=== PATIENT | male | born 1940 | race Caucasian/White ===

== ENCOUNTER 2017-07-27 00:28 | Emergency (ER) | payer MEDICARE ==
[~2017-07-27] VITALS: Ht 177.8 cm; Wt 69.8 kg
[2017-07-27 01:37] LABS: BASOPHILS ABSOLUTE AUTO 0.02 K/mm3 (0.00-0.23); BASOPHILS PERCENT AUTO 0 % (0-2); EOSINOPHILS ABSOLUTE AUTO 0.01 K/mm3 (0.00-0.68); EOSINOPHILS PERCENT AUTO 0 % (0-6); IMMATURE GRAN ABSOLUTE AUTO 0.01 K/mm3 (0.00-0.10); IMMATURE GRAN PERCENT AUTO 0 % (0-1); LYMPHOCYTES ABSOLUTE AUTO 1.14 K/mm3 (0.84-5.20); LYMPHOCYTES PERCENT AUTO 18 % (21-46); MONOCYTES PERCENT AUTO 17 % (4-13); Mean Corpuscular HGB 31.4 pg (26.0-34.0); Mean Corpuscular HGB Conc 33.3 g/dL (31.5-36.5); Mean Corpuscular Volume 94 fL (80-100); Mean Platelet Volume 11.4 fL (9.1-12.4); NEUTROPHILS ABSOLUTE AUTO 4.15 K/mm3 (1.96-9.15); NEUTROPHILS PERCENT AUTO 65 % (41-73); Platelet Count 157 K/mm3 (150-400); RDW Coefficient Variation 13.1 % (11.7-14.2); RDW Standard Deviation 45.7 fL (35.1-46.3); Red Blood Cell Count 4.14 M/mm3 (4.30-5.90); White Blood Cell Count 6.43 K/mm3 (4.00-11.30)
[2017-07-27 01:55] LABS: Alanine Aminotransfer (ALT/SGP 48 U/L (12-78); Albumin, Blood 3.7 g/dL (3.4-5.0); Albumin/Globulin Ratio 0.8 (0.8-1.8); Alk Phos 70 U/L (50-136); Anion Gap 5 mmol/L (6-16); Aspartate Aminotrans (AST/SGOT 56 U/L (12-37); Bilirubin, Total 0.5 mg/dL (0.1-1.0); Blood Urea Nitrogen 17 mg/dL (8-24); Bun/Creatinine Ratio 22.3 (12.0-20.0); CO2, Blood 30 mmol/L (21-32); Calcium, Blood 8.7 mg/dL (8.5-10.1); Chloride, Blood 100 mmol/L (98-108); Creatinine, Blood 0.76 mg/dL (0.60-1.20); Globulin, Blood 4.9 g/dL (2.2-4.0); Glomerular Filtration Rate >60 (60-); Glucose, Blood 103 mg/dL (70-99); Potassium, Blood 4.3 mmol/L (3.5-5.5); Sodium, Blood 135 mmol/L (136-145); Total Protein, Blood 8.6 g/dL (6.4-8.2)
[2017-07-27 01:57] LABS: Troponin I <0.015 ng/mL (0.000-0.040)
[2017-07-27 02:13] LABS: Source, Urine Clean Catch
[2017-07-27 02:15] LABS: Bilirubin, Urine Neg (Neg); Blood, Urine Neg (Neg); Glucose Qualitative, Urine Neg (Neg); Ketones, Urine Neg (Neg); Leukocyte Esterase, Urine Neg (Neg); Nitrite, Urine Neg (Neg); Protein, Urine Neg (Neg); Specific Gravity, Urine 1.005 (1.003-1.022); Urobilinogen, Urine NORM (Normal)
[2017-07-27 02:17] LABS: Appearance, Urine Clear (Clear); Color, Urine Yellow (P-Yellow)
[2017-07-27] MEDS ORDERED: Zithromax250 MG PO (03:06)
== END 2017-07-27 03:39 | disposition home or self-care (01) ==
LOC: ER 00:28
PROVIDERS: Emergency Medicine
DX: J18.9 Pneumonia, unspecified organism (principal); Z87.891 Personal history of nicotine dependence
CPT/HCPCS: 36415; 71046; 80053; 81003; 84484; 85025; 93005; 93010; 99283; J7030

== ENCOUNTER → 2018-05-19 | Outpatient (CLI) | payer MEDICARE ==
[~2018-05-19] MED LIST: Zithromax250 MG PO
[2018-05-19 11:13] LABS: BASOPHILS ABSOLUTE AUTO 0.02 K/mm3 (0.00-0.23); BASOPHILS PERCENT AUTO 0 % (0-2); EOSINOPHILS ABSOLUTE AUTO 0.06 K/mm3 (0.00-0.68); EOSINOPHILS PERCENT AUTO 1 % (0-6); Hematocrit 37.8 % (37.0-53.0); Hemoglobin 13.1 g/dL (13.5-17.5); IMMATURE GRAN ABSOLUTE AUTO 0.01 K/mm3 (0.00-0.10); IMMATURE GRAN PERCENT AUTO 0 % (0-1); LYMPHOCYTES PERCENT AUTO 18 % (21-46); MONOCYTES ABSOLUTE AUTO 1.14 K/mm3 (0.16-1.47); MONOCYTES PERCENT AUTO 20 % (4-13); Mean Corpuscular HGB 32.1 pg (26.0-34.0); Mean Corpuscular HGB Conc 34.7 g/dL (31.5-36.5); Mean Corpuscular Volume 93 fL (80-100); Mean Platelet Volume 10.3 fL (9.1-12.4); NEUTROPHILS ABSOLUTE AUTO 3.47 K/mm3 (1.96-9.15); NEUTROPHILS PERCENT AUTO 61 % (41-73); Platelet Count 133 K/mm3 (150-400); RDW Coefficient Variation 12.8 % (11.7-14.2); RDW Standard Deviation 43.8 fL (35.1-46.3); Red Blood Cell Count 4.08 M/mm3 (4.30-5.90)
[2018-05-19 11:35] LABS: Alanine Aminotransfer (ALT/SGP 17 U/L (12-78); Albumin, Blood 3.6 g/dL (3.4-5.0); Albumin/Globulin Ratio 0.8 (0.8-1.8); Alk Phos 83 U/L (40-126); Anion Gap 11 mmol/L (6-16); Aspartate Aminotrans (AST/SGOT 23 U/L (12-37); Bilirubin, Total 0.5 mg/dL (0.1-1.0); Blood Urea Nitrogen 16 mg/dL (8-24); CO2, Blood 28 mmol/L (21-32); Chloride, Blood 96 mmol/L (98-108); Globulin, Blood 4.6 g/dL (2.2-4.0); Glomerular Filtration Rate >60 (60-); Glucose, Blood 102 mg/dL (70-99); Potassium, Blood 3.7 mmol/L (3.5-5.5); Sodium, Blood 135 mmol/L (136-145); Thyroid Stimulating Hormone 4.462 uIU/mL (0.360-4.800); Total Protein, Blood 8.2 g/dL (6.4-8.2)
[2018-05-19 11:36] LABS: Troponin I <0.017 ng/mL (0.000-0.040)
== END | disposition home or self-care (01) ==
LOC: LAB EV 11:09 → LAB SHORT 11:09
PROVIDERS: Physician Assistant
DX: R53.83 Other fatigue (principal); R51 Headache
CPT/HCPCS: 80053; 84443; 84484; 85025

== ENCOUNTER 2018-05-22 17:50 | Emergency (ER) | payer MEDICARE ==
[~2018-05-22] VITALS: Ht 175.3 cm; Wt 68.0 kg
[2018-05-22 19:04] LABS: BASOPHILS ABSOLUTE AUTO 0.01 K/mm3 (0.00-0.23); BASOPHILS PERCENT AUTO 0 % (0-2); EOSINOPHILS ABSOLUTE AUTO 0.05 K/mm3 (0.00-0.68); EOSINOPHILS PERCENT AUTO 1 % (0-6); Hematocrit 37.2 % (37.0-53.0); Hemoglobin 12.2 g/dL (13.5-17.5); IMMATURE GRAN ABSOLUTE AUTO 0.01 K/mm3 (0.00-0.10); IMMATURE GRAN PERCENT AUTO 0 % (0-1); LYMPHOCYTES ABSOLUTE AUTO 1.44 K/mm3 (0.84-5.20); LYMPHOCYTES PERCENT AUTO 36 % (21-46); MONOCYTES ABSOLUTE AUTO 0.49 K/mm3 (0.16-1.47); MONOCYTES PERCENT AUTO 12 % (4-13); Mean Corpuscular HGB 31.4 pg (26.0-34.0); Mean Corpuscular HGB Conc 32.8 g/dL (31.5-36.5); Mean Platelet Volume 10.1 fL (9.1-12.4); NEUTROPHILS ABSOLUTE AUTO 2.02 K/mm3 (1.96-9.15); NEUTROPHILS PERCENT AUTO 50 % (41-73); Platelet Count 144 K/mm3 (150-400); RDW Coefficient Variation 12.7 % (11.7-14.2); Red Blood Cell Count 3.88 M/mm3 (4.30-5.90); White Blood Cell Count 4.02 K/mm3 (4.00-11.30)
[2018-05-22 19:22] LABS: Mean Corpuscular Volume 96 fL (80-100)
[2018-05-22 19:25] LABS: Alanine Aminotransfer (ALT/SGP 22 U/L (12-78); Albumin, Blood 3.4 g/dL (3.4-5.0); Albumin/Globulin Ratio 0.8 (0.8-1.8); Alk Phos 74 U/L (50-136); Anion Gap 4 mmol/L (6-16); Aspartate Aminotrans (AST/SGOT 31 U/L (12-37); Bilirubin, Total 0.3 mg/dL (0.1-1.0); Blood Urea Nitrogen 13 mg/dL (8-24); Bun/Creatinine Ratio 14.1 (12.0-20.0); CO2, Blood 31 mmol/L (21-32); Calcium, Blood 8.9 mg/dL (8.5-10.1); Chloride, Blood 100 mmol/L (98-108); Creatinine, Blood 0.92 mg/dL (0.60-1.20); Globulin, Blood 4.4 g/dL (2.2-4.0); Glomerular Filtration Rate >60 (60-); Glucose, Blood 119 mg/dL (70-99); Potassium, Blood 3.9 mmol/L (3.5-5.5); Sodium, Blood 135 mmol/L (136-145); Total Protein, Blood 7.8 g/dL (6.4-8.2); Troponin I <0.015 ng/mL (0.000-0.040)
== END 2018-05-22 21:12 | disposition home or self-care (01) ==
LOC: ER 17:50
PROVIDERS: Emergency Medicine
DX: G47.33 Obstructive sleep apnea (adult) (pediatric) (principal); Z91.19 Patient's noncompliance with other medical treatment and regimen; J18.9 Pneumonia, unspecified organism; Z87.891 Personal history of nicotine dependence
CPT/HCPCS: 36415; 80053; 84484; 85025; 93005; 93010; 99285-25

== ENCOUNTER 2018-09-08 05:33 | Day surgery (SDC) | payer MEDICARE ==
[~2018-09-08] VITALS: Ht 180.3 cm; Wt 71.0 kg
[~2018-09-08 05:33] MED LIST changes: +Advil200 M1 PO; +HEMP EXTRACT; +THERA1 EACH PO
--- NOTE | 2018-09-08 07:20 | NUR ---
UP TO BATHROOM TO VOID. PT RING PLACED IN BELONGINGS BAG IN BLUE POUCH, LABELED WITH PT STICKER.
--- NOTE | 2018-09-08 11:09 | NUR ---
ASSUMED CARE. TOLERATING PO INTAKE. PO PAIN MED GIVEN FOR PAIN.
--- NOTE | 2018-09-08 11:50 | NUR ---
PT AMBULATED TO BATHROOM WITH ASSIST. NOW SITTING IN CHAIR AWAITING RIDE HOME (FRIEND) TO RETURN.
--- NOTE | 2018-09-08 12:22 | NUR ---
1220- SBA WHILE PT DRESSING, FRIEND HERE, Discharge instructions reviewed with patient. Patient verbalizes understanding. Copy given to patient to take home. Discharged via wheelchair to private car for ride home.
== END 2018-09-08 12:20 | disposition home or self-care (01) ==
LOC: ORSCMMR 05:33 → ORD 07:30 → ORSCMMR 07:30
PROVIDERS: Surgery
PROC: 8E0W4CZ Robotic Assisted Procedure of Trunk Region, Percutaneous Endoscopic Approach (ICD-10-PCS; principal; 2018-09-08 07:30)
PROC: 0YUA4JZ Supplement Bilateral Inguinal Region with Synthetic Substitute, Percutaneous Endoscopic Approach (ICD-10-PCS; principal; 2018-09-08 07:30)
DX: K40.20 Bilateral inguinal hernia, without obstruction or gangrene, not specified as recurrent (principal); G47.33 Obstructive sleep apnea (adult) (pediatric); Z87.891 Personal history of nicotine dependence; B19.20 Unspecified viral hepatitis C without hepatic coma
CPT/HCPCS: 49650; S2900; A9270-GY; C1781; J0690; J1100; J1885; J2250; J2405; J2704; J3010; J7120

== ENCOUNTER → 2021-08-29 | Outpatient (CLI) | payer BC ==
[2021-08-29 13:29] LABS: BASOPHILS ABSOLUTE AUTO 0.02 K/mm3 (0.00-0.23); BASOPHILS PERCENT AUTO 0 % (0-2); EOSINOPHILS ABSOLUTE AUTO 0.06 K/mm3 (0.00-0.68); EOSINOPHILS PERCENT AUTO 1 % (0-6); Hematocrit 41.4 % (37.0-53.0); Hemoglobin 13.9 g/dL (13.5-17.5); IMMATURE GRAN ABSOLUTE AUTO 0.01 K/mm3 (0.00-0.10); IMMATURE GRAN PERCENT AUTO 0 % (0-1); LYMPHOCYTES ABSOLUTE AUTO 1.31 K/mm3 (0.84-5.20); LYMPHOCYTES PERCENT AUTO 28 % (21-46); MONOCYTES ABSOLUTE AUTO 0.53 K/mm3 (0.16-1.47); MONOCYTES PERCENT AUTO 12 % (4-13); Mean Corpuscular HGB 31.4 pg (26.0-34.0); Mean Corpuscular HGB Conc 33.6 g/dL (31.5-36.5); Mean Corpuscular Volume 94 fL (80-100); Mean Platelet Volume 12.7 fL (9.1-12.4); NEUTROPHILS ABSOLUTE AUTO 2.68 K/mm3 (1.96-9.15); NEUTROPHILS PERCENT AUTO 58 % (41-73); Platelet Count 209 K/mm3 (150-400); RDW Coefficient Variation 13.2 % (11.7-14.2); RDW Standard Deviation 45.1 fL (35.1-46.3); Red Blood Cell Count 4.43 M/mm3 (4.30-5.90); White Blood Cell Count 4.61 K/mm3 (4.00-11.30)
[2021-08-29 13:39] LABS: Alanine Aminotransfer (ALT/SGP 23 U/L (12-78); Albumin, Blood 4.4 g/dL (3.4-5.0); Alk Phos 106 U/L (40-126); Anion Gap 9 mmol/L (6-16); Aspartate Aminotrans (AST/SGOT 20 U/L (12-37); Bilirubin, Total 0.5 mg/dL (0.1-1.0); Blood Urea Nitrogen 15 mg/dL (8-24); Bun/Creatinine Ratio 15.3 (12.0-20.0); CO2, Blood 31 mmol/L (21-32); Calcium, Blood 9.7 mg/dL (8.5-10.1); Chloride, Blood 102 mmol/L (98-108); Creatinine, Blood 0.98 mg/dL (0.60-1.20); Globulin, Blood 4.4 g/dL (2.2-4.0); Glomerular Filtration Rate >60 (60-); Glucose, Blood 96 mg/dL (70-99); Potassium, Blood 4.1 mmol/L (3.5-5.5); Sodium, Blood 142 mmol/L (136-145); Total Protein, Blood 8.8 g/dL (6.4-8.2)
== END | disposition home or self-care (01) ==
LOC: LAB SHORT 13:24
PROVIDERS: Physician Assistant
DX: R10.9 Unspecified abdominal pain (principal)
CPT/HCPCS: 80053; 83690; 85025

== ENCOUNTER 2021-11-16 14:52 | Inpatient (IN) | payer MEDICARE ==
[~2021-11-16] VITALS: Ht 182.9 cm; Wt 75.0 kg
[~2021-11-16 14:52] MED LIST changes: -Advil200 M1 PO; +DAILY-VITE1 EAC1 PO; +IBUP200 PO; -THERA1 EACH PO
[2021-11-16 15:52] LABS: BASOPHILS ABSOLUTE AUTO 0.02 K/mm3 (0.00-0.23); BASOPHILS PERCENT AUTO 0 % (0-2); EOSINOPHILS PERCENT AUTO 0 % (0-6); Hematocrit 40.6 % (37.0-53.0); Hemoglobin 13.5 g/dL (13.5-17.5); IMMATURE GRAN ABSOLUTE AUTO 0.06 K/mm3 (0.00-0.10); IMMATURE GRAN PERCENT AUTO 0 % (0-1); LYMPHOCYTES ABSOLUTE AUTO 1.05 K/mm3 (0.84-5.20); LYMPHOCYTES PERCENT AUTO 8 % (21-46); MONOCYTES ABSOLUTE AUTO 1.33 K/mm3 (0.16-1.47); MONOCYTES PERCENT AUTO 10 % (4-13); Mean Corpuscular HGB 30.5 pg (26.0-34.0); Mean Corpuscular HGB Conc 33.3 g/dL (31.5-36.5); Mean Corpuscular Volume 92 fL (80-100); NEUTROPHILS ABSOLUTE AUTO 11.09 K/mm3 (1.96-9.15); NEUTROPHILS PERCENT AUTO 82 % (41-73); Platelet Count 178 K/mm3 (150-400); RDW Coefficient Variation 12.9 % (11.7-14.2); RDW Standard Deviation 43.6 fL (35.1-46.3); Red Blood Cell Count 4.43 M/mm3 (4.30-5.90); White Blood Cell Count 13.55 K/mm3 (4.00-11.30)
[2021-11-16 16:20] LABS: Albumin, Blood 3.4 g/dL (3.4-5.0); Albumin/Globulin Ratio 0.6 (0.8-1.8); Bilirubin, Total 0.7 mg/dL (0.1-1.0); Bun/Creatinine Ratio 19.8 (12.0-20.0); Calcium, Blood 9.3 mg/dL (8.5-10.1); Creatinine, Blood 0.96 mg/dL (0.60-1.20); Globulin, Blood 5.3 g/dL (2.2-4.0); Potassium, Blood 3.6 mmol/L (3.5-5.5); Total Protein, Blood 8.7 g/dL (6.4-8.2)
[2021-11-16 17:56] LABS: Creatine Kinase MB 3.9 ng/mL (0.0-3.6); Creatine Kinase MB Index 0.5 (0.0-4.0)
[2021-11-16 18:32] LABS: Source, Urine Clean Catch
[2021-11-16 18:37] LABS: Influenza A, PCR NEGATIVE (NEGATIVE); Influenza B, PCR NEGATIVE (NEGATIVE); Resp Syncytial Virus, PCR NEGATIVE (NEGATIVE); SARS-Cov-2 (COVID-19) PCR, MMC NEGATIVE (NEGATIVE)
[2021-11-16 18:45] LABS: Appearance, Urine Clear (Clear); Bilirubin, Urine Neg (Neg); Blood, Urine 4+ (Neg); Color, Urine Yellow (P-Yellow); Glucose Qualitative, Urine Neg (Neg); Ketones, Urine Neg (Neg); Leukocyte Esterase, Urine Neg (Neg); Nitrite, Urine Neg (Neg); Protein, Urine 2+ (Neg); Specific Gravity, Urine 1.015 (1.003-1.022); Urobilinogen, Urine NORM (Normal)
[2021-11-16 18:55] LABS: Bacteria Many /hpf; Red Blood Cells, Urine 0-2 /hpf (0-2); Squamous Epithelial Cells Rare /hpf (Few); White Blood Cells, Urine 0-2 /hpf (0-5)
[2021-11-17 04:47] LABS: BASOPHILS ABSOLUTE AUTO 0.03 K/mm3 (0.00-0.23); BASOPHILS PERCENT AUTO 0 % (0-2); EOSINOPHILS PERCENT AUTO 0 % (0-6); Hemoglobin 12.3 g/dL (13.5-17.5); IMMATURE GRAN ABSOLUTE AUTO 0.05 K/mm3 (0.00-0.10); IMMATURE GRAN PERCENT AUTO 0 % (0-1); LYMPHOCYTES ABSOLUTE AUTO 1.13 K/mm3 (0.84-5.20); LYMPHOCYTES PERCENT AUTO 9 % (21-46); MONOCYTES ABSOLUTE AUTO 1.17 K/mm3 (0.16-1.47); MONOCYTES PERCENT AUTO 10 % (4-13); Mean Corpuscular HGB 30.6 pg (26.0-34.0); Mean Corpuscular HGB Conc 33.2 g/dL (31.5-36.5); Mean Corpuscular Volume 92 fL (80-100); Mean Platelet Volume 10.8 fL (9.1-12.4); NEUTROPHILS ABSOLUTE AUTO 9.96 K/mm3 (1.96-9.15); NEUTROPHILS PERCENT AUTO 81 % (41-73); Platelet Count 164 K/mm3 (150-400); RDW Coefficient Variation 12.9 % (11.7-14.2); RDW Standard Deviation 44.1 fL (35.1-46.3); Red Blood Cell Count 4.02 M/mm3 (4.30-5.90); White Blood Cell Count 12.34 K/mm3 (4.00-11.30)
[2021-11-17 05:05] LABS: Albumin, Blood 2.7 g/dL (3.4-5.0); Albumin/Globulin Ratio 0.6 (0.8-1.8); Bilirubin, Total 0.7 mg/dL (0.1-1.0); Bun/Creatinine Ratio 18.5 (12.0-20.0); Calcium, Blood 8.4 mg/dL (8.5-10.1); Creatinine, Blood 0.86 mg/dL (0.60-1.20); Globulin, Blood 4.3 g/dL (2.2-4.0); Potassium, Blood 3.5 mmol/L (3.5-5.5)
[2021-11-17] MEDS ORDERED: FURO20 PO (06:37)
[2021-11-17] MEDS ORDERED: POTA10T PO (06:38)
--- NOTE | 2021-11-17 07:32 | NUR ---
NEW ADMISSION FROM ER. PER ER REPORT PT A/0X4 AND CONTINENT. PT ABLE TO ANSWER A/0 QUESTIONS CORRECTLY HOWEVER NOTED WITH CONFUSION. PT ALSO INCONTINENT. PT WAS USING URINAL WHEN LATER PT FOUND TO HAVE THE URINAL TO HIS MOUTH. UNSURE IF PT DRANK URINE THERE WAS A VERY SMALL AMOUNT HOWEVER HIS ATTENDS WERE SOILED. [facility] CARE PROVIDED AND WHEN PT ASKED IF HE WAS AWARE OF HIM HOLDING HIS URINAL TO HIS MOUTH HE DID NOT KNOW. AFTER THIS EPISODE PT DID NOT CALL FOR URINAL RATHER WAS INCONTINENT. PER IF PT PASSES NURSE BEDSIDE SWALLOW EVAL OKAY FOR HIM TO TAKE P.O. MEDS. PT WITH NO NOTED COUGH DURING BEDSIDE EVAL. PT TOOK MEDS W/O PROBLEM. PT TEMEPERATURE THIS MORNING 102.1 ICE THERAPY GIVEN AND LATER TYLENOL WITH GOOD RESULT. DUE TO PT NOT BEING A RELIABLE HISTORIAN LEFT VOICEMAIL TO [facility] () TO CALL BACK SO THAT WE COULD DO MED REC AND GO OVER OTHER HISTORY. AWAITING CALL. ENDORSED TO ONCOMING RN. PT REPORTS HE HAS SLEEP APNEA AND USES CPAP.
--- NOTE | 2021-11-17 10:57 | NUR ---
Upon receiving a spiritual care referral, I visit pt. Pt is sitting on a chair and alert. 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 Pt proceeds to tells me about his life, his ministry, his family and the 80 acres that they live [place]. Pt is pleasant and talkative. Pt doesn't list any concerns but is easily encouraged by convversation centered around God and anival. I provide therapeutic listening and prayer. Pt responds well and shows signs of being uplifted in his anival. I will continue to remain available to patient and family.
--- NOTE | 2021-11-17 12:25 | NUR ---
Shift Summary A/Ox3, can be impulsive. Ambulate with staff to bathroom and up to chair for meals. Regular diet per Speech Therapy. 1p gait belt and FWW. Denies pain. Voiding well, continent. Enjoyed visit from chaplain Joiner. Meds whole with applesauce.
--- NOTE | 2021-11-17 17:15 | NUR ---
AFTERNOON SHIFT SUMMARY- PT COOPERATIVE WITH CARE. PT IMPLUSIVE GETTING UP TO BATHROOM WITHOUT HELP, BED ALARM INGAGED. PT CALLED AND CONFIRMED MED REC NEEDS, NOTED IN CHART. PT RESTING WITH CALL LIGHT, BED RAILS, AND ALARM IN PLACE.
--- NOTE | 2021-11-18 06:29 | NUR ---
PT WITH NOTED SUNDOWNERS HE BECOMES CONFUSED AND DOES NOT SEEM TO UNDERSTAND HOW TO CALL FOR ASSISTANCE. VERY POOR SAFETY INSIGHT. PT PLACED ON CPAP HOWEVER LATER REMOVED D/T COMPLAIN FROM MASK BEING TOO THIGHT AND HURTING HIS NOSE. PT HEAVILY INCONTINENT. AT START OF SHIFT PT A VERY HEAVY TWO ASSIST TRANSFER TO BED THEN LATER DURING THE NIGHT HE WAS UP AND WALKING WITH 1 ASSIST W/RW TO BATHROOM. PT NOTED ALSO MAKING INCROMPHENSIBLE SOUNDS WHEN TURNED IN BED TO CHANGE ATTENDS OR AT TIMES DURING CARE. PT STATES THAT AT THIS TIMES HE IS SPEAKING IN TONGUES. SPUTUM SAMPLE NOT COLLECTED PT HAS A DRY COUGH. THIS MORNING PT REFUSED MORNING LABS HE WAS ANGRY THAT HE WAS AWAKENED OVERNIGHT. LAB ASKED TO RETURN LATER. PT ONLY AWAKED ONCE TO PLACE CPAP BY RT OTHER TIMES PT AWAKE ON HIS OWN.
[2021-11-18 08:09] LABS: BASOPHILS ABSOLUTE AUTO 0.02 K/mm3 (0.00-0.23); BASOPHILS PERCENT AUTO 0 % (0-2); EOSINOPHILS ABSOLUTE AUTO 0.07 K/mm3 (0.00-0.68); EOSINOPHILS PERCENT AUTO 1 % (0-6); Hematocrit 37.7 % (37.0-53.0); Hemoglobin 12.6 g/dL (13.5-17.5); IMMATURE GRAN ABSOLUTE AUTO 0.04 K/mm3 (0.00-0.10); IMMATURE GRAN PERCENT AUTO 0 % (0-1); LYMPHOCYTES ABSOLUTE AUTO 0.83 K/mm3 (0.84-5.20); LYMPHOCYTES PERCENT AUTO 9 % (21-46); MONOCYTES ABSOLUTE AUTO 1.03 K/mm3 (0.16-1.47); MONOCYTES PERCENT AUTO 11 % (4-13); Mean Corpuscular HGB 30.9 pg (26.0-34.0); Mean Corpuscular HGB Conc 33.4 g/dL (31.5-36.5); Mean Corpuscular Volume 92 fL (80-100); NEUTROPHILS ABSOLUTE AUTO 7.59 K/mm3 (1.96-9.15); NEUTROPHILS PERCENT AUTO 79 % (41-73); Platelet Count 176 K/mm3 (150-400); RDW Coefficient Variation 12.8 % (11.7-14.2); RDW Standard Deviation 43.7 fL (35.1-46.3); Red Blood Cell Count 4.08 M/mm3 (4.30-5.90); White Blood Cell Count 9.58 K/mm3 (4.00-11.30)
[2021-11-18] MEDS ORDERED: AMOCLA875 PO (14:52)
[2021-11-18] MEDS ORDERED: AZIT500 PO (14:52)
[2021-11-18] MEDS ORDERED: VISBIOME 112.51 EACH PO (14:52)
[2021-11-18] MEDS ORDERED: ROBITUSSIN DM PO (15:02)
--- NOTE | 2021-11-18 16:21 | NUR ---
PT HAS FOGETFUL MOMENTS, CAN MAKE NEEDS KNOWN. PT IS COOPERATIVING WITH SOME MEDICATIONS AND CARE. SBA TO 1-PERSON WITH FWW; UNSTEADY AT TIMES. PT IS CONTINENT, BUT IMPULSIVE, DOESN'T USE THE CALL LIGHT. NO SIGNS OF PAIN, ANXIETY, OR AGGRESSION. NO ACUTE CHANGES. CURRENTLY RA. BED ALARM IN USE, CALL LIGHT WITHIN REACH, BED IN THE LOWEST POSITION.
--- NOTE | 2021-11-19 06:07 | NUR ---
PER REPORT PT NOTED SUNDOWNING EARLY IN THE DAY INSISTING ON GOING HOME, REMOVING HIS CLOTHES AND BECOMING AGGRESIVE. AT START OF SHIFT PT WITH VISITORS CALMLY SITTING IN CHAIR HOWEVER SOON AFTER THEY LEFT PT INSISTING ON GOING HOME CONTINUED TO REFUSE TO WEAR CLOTHES, VERY UNSTEADY ON FEET AND IMPULSIVE CONSTANTLY GETTING UP. PT A/0X3-4 HOWEVER CONFUSED NOT UNDERSTANDING WHY HE IS HERE. PT NOTED TO BECOME MORE AGGRESIVE WHEN TOUCHED HOWEVER D/T HIM BEING VERY UNSTEADY UNABLE TO KEEP HANDS OFF PT. RUSTY EDWARDS NOTIFIED WITH ORDER FOR MARBIN AND SEROQUEL 25 MG Q4HP. DID RECEIVE ONE TIME DOSE OF TRAZADONE 50 MG PRIOR TO PT BECOMING INCREASINGLY AGITATED WITH NO EFFECT. SEROQUEL GIVEN WITH MINIMAL EFFECT. PT INSISTING THAT WE UNTIED HIM AND LET HIM GO, AGGRESIVELY SHAKING BEDSIDE RAILS AND STATING THAT HE DOES NOT WANT TO BE HERE BECAUSE WE WANT TO "KILL" HIM. PT WANTED TO USE BATHROOM AND OFFERED BED NI HOWEVER UPSET AND THREW IT ACROSS THE ROOM. PT PROCEEDED TO TAKE ATTENDS OFF AND URINATE ALL OVER THE BED FLOOR STATING HE WAS DOING THAT BECAUSE WE HAD HIM TIED TO THE BED. ZYPREXA 5M IM X1 GIVEN AND THIS SEEMED TO CALM PT DOWN ENOUGH THAT HE ALLOWED US TO CHANGE HIS BED AND CLEAN HIM UP. VS TAKEN AND HR NOTED 150 ON ASSESSMENT RADIAL PULSE FAST. PT WITH NO COMPLAINS OF CHEST PAIN LAYING IN BED. NOTIFIED WITH ORDER OF LOPRESSOR 5M IV X1 AND TELEMETRY ORDER. PT PLACED ON TELE HOWEVER AFTER URINATING PT HR NOTED DECREASE TO BE 100-110. LOPRESSOR NOT GIVEN. PT WITH NO FURTHER EPISODES OF HR SUSTAING IN 150S. SPOKE WITH PT LAINEY AND SHE REPORTS THAT PT HAS PROGRESSIVELY DECLINED, STATES THAT HE CAN BE AGGRESIVE AT TIMES AND WHEN HE IS SET IN DOING SOMETHING IT IS HARD TO CHANGE HIS MIND. SHE REPORTS THAT PRIOR TO HIM COMING HE HAD 5 FALLS AND REPORTS THAT SOMETIMES SHE WOULD FIND HIM LAYING ON THE GROUND SOILED AND HAVING A HARD TIME TO CHANGE HIM. SHE STATES THAT THE DAY HE CAME TO THE ER HE NEEDE THE ASSISTANCE OF 2 "BUILD MEN" TO CARRY PT INTO THE CAR. STATES IS SHE CANNOT TAKE CARE OF PT DUE TO HIS INCREASED NEEDS AND WEAKEND STATE. REQUESTING ASSISTANCE IN PLACING PT IN FACILITY TO SEE IF HE CAN GET STRONGER AND BETTER. ALSO REQUESTING AN UPDATE FROM MD TODAY. WILL ENDORSE TO ONCOMING RN. QUIÑONEZ
[2021-11-19 08:31] LABS: Bun/Creatinine Ratio 22.9 (12.0-20.0); Calcium, Blood 8.6 mg/dL (8.5-10.1); Creatinine, Blood 0.79 mg/dL (0.60-1.20); Potassium, Blood 3.6 mmol/L (3.5-5.5)
--- NOTE | 2021-11-20 05:36 | NUR ---
PT ABLE TO CORRECTLY ANSWER A/O QUESTIONS HOWEVER CONFUSED. PT WANTING TO GO HOME AND AT OTHER TIMES WANTING TO GET OUT OF ROOM TO HELP HIS WHO HE "HEARD SCREAMING." EXPLAINED TO PT THAT HIS WAS NOT HERE AND IT WAS NOTER PT SCREAMING HOWEVER PT INSISTING THAT HE NEEDED TO HELP HIS . PT MEDICATED WITH ZYPREXA X1 AND AFTERWARDS ABLE TO SLEEP. PT WITH CPAP T/O NIGHT.
--- NOTE | 2021-11-20 18:08 | NUR ---
SHIFT SUMMARY PATIENT DENIES PAIN, NAUSEA, AND SHORTNESS OF BREATH. PATIENT IS A 2P FOR TRANSFERS. PATIENT IS VERY FORGETFUL. PATIENT HAS DIFFICULT TIME FOLLOWING DIRECTIONS DUE TO NOT REMEMBERING THEM. PATIENT REMAINS IN MARBIN VEST DUE TO HIGH FALL RISK AND PATIENT FREQUENTLY TRYING TO GET OUT OF BED. PATIENT REPEATEDLY ASKS WHEN HE CAN GO HOME. PATIENT VISITED TODAY. PATIENT IS EATING AND DRINKING WELL. PATIENT WORKED WITH PT TODAY, RECOMMENDING HOME WITH H.H OR MEMORY CARE. PATIENT WAS PLEASANT AND COOPERATIVE WITH CARE.
--- NOTE | 2021-11-21 06:52 | NUR ---
PT OVERNIGHT OSORIO TO SLEEP BETTER W/O NEEDING PRN ZYPREXA. DOES HAVE EPISODES WHEN HE WAKES UP AND TRIES TO "GO HOME" WANTING TO BE UNTIED HOWEVER WAS ABLE TO BE REDIRECTABLE. CPAP T/O THE NIGHT. CONT/INCONT. PT REMAINED ON MARBIN RESTRAINT.
--- NOTE | 2021-11-21 17:27 | NUR ---
SHIFT SUMMARY PATIENT DENIES PAIN, NAUSEA, AND SHORTNESS OF BREATH. PATIENT IS A 2P FOR TRANSFERS. PATIENT WORKED WITH OT TODAY. PATIENT HAD A VISITOR IN THE AFTERNOON. PATIENT VERY PLEASANT, DISCONTINUED MARBIN VEST DUE TO BED/CHAIR ALARMS AND CAMERA ON. PATIENT DID START TO GET SLIGHTLY AGGITATED IN THE EVENING, BUT REDIRECTABLE. PATIENT IS EATING AND DRINKING WELL. PATIENT IS PLEASANT AND COOPERATIVE WITH CARE.
--- NOTE | 2021-11-21 23:24 | NUR ---
PT HAS BEEN INCREASINGLY AGGRESSIVE THIS EVENING. HE WAS ATTEMPTING TO LEAVE AT SHIFT CHANGE AND BOTH RNS AND CNAS FROM BOTH SHIFTS HAD TO HELP RESTRAIN THE PATIENT. HE WAS PLACED IN A VEST AND BILATERAL SOFT WRIST RESTRAINTS APDOUGIE GONCALVES ORDER. PT REPREATEDLY KEP RIPPING OFF THE BILATERAL WRISTS AND PUNCHING AND KICKING STAFF WHEN THEY WERE PLACED. MD ORDERE TUFF CUFF BE PLACED BILATERALLY ON WRISTS. SECURITY CALLED TO HELP WITH PLACING THEM. PT IS CURRENTLY LAYING IN BED CURSING AND YELLING.
--- NOTE | 2021-11-22 04:57 | NUR ---
SHIFT SUMMARY SEE EARLIER NOT ABOUT BEHAVIORAL ISSUES AND RESTRAINTS. PT HAS BEEN SLEEPING SINCE BEING PLACED IN TOUGH CUFFS AND HAS BEEN MORE PLEASANT WITH STAFF. HE IS INCONT AND REQUIRES CHANGING FREQUENTLY HE IS A HEAVY WETTER. HE DENIES PAIN OR SOB, BUT IS VERY CONFUSED AND HE WANTS TO GO HOME AND THINKS STAFF IS HOLDING HIM AGAINST HIS WILL. PT HAS CALLED HIS SEVERAL TIMES, BUT SHE IS NOT ANSWERING.. BED IS IN LOWEST POSITION AND CALL LIGHT IN REACH
[2021-11-22 07:05] LABS: Bun/Creatinine Ratio 27.7 (12.0-20.0); Calcium, Blood 8.8 mg/dL (8.5-10.1); Creatinine, Blood 0.83 mg/dL (0.60-1.20); Potassium, Blood 3.9 mmol/L (3.5-5.5)
--- NOTE | 2021-11-22 17:32 | NUR ---
SHIFT SUMMARY PATIENT MEDICATED FOR PAIN, DENIES NAUSEA AND SHORTNESS OF BREATH. PATIENT IS A 2P FOR TRANSFERS. OT WORKED WITH PATIENT TODAY. RECOMMEND MEMORY CARE. AND FRIEND VISITED TODAY. PATIENT REMAINS IN RESTRAINTS DUE TO STAFF AND PATIENT SAFETY. PATIENT SLEPT ON AND OFF TODAY. PATIENT STARTED TO GET RESTLESS IN EVENING. PATIENT HAS BEEN PLEASANT AND COOPERATIVE WITH CARE THIS SHIFT.
--- NOTE | 2021-11-23 05:05 | NUR ---
SHIFT SUMMARY PT HAS HAD A MUCH BETTER NIGHT THIS SHIFT. HE HAS BEEN CALM AND COOPERATIVE WITH CARE. HE ALLOWED US TO CHANGE HIM AND TOOK HIS MEDICATIONS DIRECTED. HE HAS SLEPT ALL NIGHT. NO COMPLAINTS OF PAIN. HIS MENTATION IS IMPROVED OVER PREVIOUS SHIFT. HE STILL TALKS OF GOING HOME, BUT ACKOWLEDGES THAT HE KNOWS HIS CAN'T CARE FOR HIM. RESTRAINTS ARE STILL IN PLACE THE PT IS FORGETFUL AND TRIES TO LEAVE AND HAS BEEN AGGRESSIVE IN THE PAST WHEN TRYING TO REDIRECT. BED IN LOWEST POSITION AND CALL LIGHT IN REACH.
--- NOTE | 2021-11-23 08:00 | NUR ---
pt laying in bed eating breakfast, when asked how he is he states I'm happy, I'm happy because Im eating, Im always happy when Im eating, coopertive with care this am, follows commands well, denies pain, lungs are clear t/o, resp even and unlabored, no cough noted, hrr, no edema noted, ppp+2, cap refill <3 sec, vs stable, afebrile, piv is clear and patent, bt x4, abd flat soft nontender, voids some in urinal, also has brief in place, skin is a bit pink on coccyx, otherwise c/w/d, gloria scales, call light in reach. did remove left wrist to feed himself.
--- NOTE | 2021-11-23 18:22 | NUR ---
pt has been calm today, sat up in a chair for half the day, cooperative with care, visitor in room this afternoo, resting in bed at this time, call light in reach.
--- NOTE | 2021-11-24 05:13 | NUR ---
BENEFITS ANALYST SUMMARY ADMITTED FOR [facility]PSIS PNA. PT IS A FULL CODE. HE IS ALERT AND ORIENTED X2-3 WITH INTERMITTENT CONFUSION THROUGHOUT THE SHIFT. HE IS IMPULSIVE AND TRIES TO GET UP WITHOUT USING CALL LIGHT SO HAS REMAINED IN A MARBIN THROUGHOUT THE SHIFT. HE DOES NOT PULL ON THE MARBIN AND HAS BEEN SLEEPING. PT IS A 2P MAX ASSIST UP TO THE COMMODE WHEN NECESSARY BUT IS CONTINENT/INCONTINENT OF URINE. HIS LUNGS ARE DIMINISHED IN THE BASES BUT OTHERWISE CLEAR. HE HAS BEEN WEARING HIS CPAP INTERMITTENTLY TONIGHT. HE HAS COMPLAINTS OF CHRONIC NECK PAIN THAT IS IMPROVED WITH A NECK PILLOW AND UNINTERRUPTED REST.
--- NOTE | 2021-11-24 17:46 | NUR ---
SHIFT SUMMARY: MARBIN WILDER D/C'D AT 1000 THIS MORNING. TARYN HAS BEEN CALM AND COOPERATIVE THIS SHIFT, NO BEHAVIORS REQUIRING PRN MEDICATIONS. REFUSED 1600 DOSE OF SEROQUEL. C/O CHRONIC NECK/BACK PAIN; DECLINED OFFERED TYLENOL, STATING "IT WON'T DO ANYTHING." A&O X 2, KNOWS HIS FAMILY. WORKED WITH PT/OT TODAY, IS AMBULATING BETTER USING 1 PERSON, GAIT BELT, AND FWW. NEEDS CUES TO KEEP FWW CLOSER TO HIM. AND HIS FRIENDS VISITED PART OF THE DAY.
--- NOTE | 2021-11-25 04:54 | NUR ---
PROFESSIONAL SERVICES MANAGER SUMMARY ADMITTED FOR SEPSIS PNA. HE IS A FULL CODE. PLAN FOR PLACEMENT, HOME HEALTH VS MEMORY CARE. PT HAS BEEN MOSTLY PLEASANT THROUGHOUT THE SHIFT, WITH SLIGHT AGITATION THIS MORNING. HE IS ALERT AND ORIENTED X2. CONTINENT BUT INCONTINENT AT NIGHT SOMETIMES. 1PA WITH FWW. HE HAS BEEN WEARING HIS CPAP AT NIGHT WITHOUT ISSUE. DOES NOT USE CALL LIGHT BEFORE GETTING UP.
[2021-11-25 05:31] LABS: BASOPHILS ABSOLUTE AUTO 0.03 K/mm3 (0.00-0.23); BASOPHILS PERCENT AUTO 0 % (0-2); EOSINOPHILS ABSOLUTE AUTO 0.24 K/mm3 (0.00-0.68); EOSINOPHILS PERCENT AUTO 3 % (0-6); Hematocrit 38.9 % (37.0-53.0); Hemoglobin 12.8 g/dL (13.5-17.5); IMMATURE GRAN ABSOLUTE AUTO 0.07 K/mm3 (0.00-0.10); IMMATURE GRAN PERCENT AUTO 1 % (0-1); LYMPHOCYTES ABSOLUTE AUTO 1.65 K/mm3 (0.84-5.20); LYMPHOCYTES PERCENT AUTO 23 % (21-46); MONOCYTES ABSOLUTE AUTO 0.91 K/mm3 (0.16-1.47); MONOCYTES PERCENT AUTO 13 % (4-13); Mean Corpuscular HGB 30.1 pg (26.0-34.0); Mean Corpuscular HGB Conc 32.9 g/dL (31.5-36.5); Mean Corpuscular Volume 92 fL (80-100); Mean Platelet Volume 10.7 fL (9.1-12.4); NEUTROPHILS ABSOLUTE AUTO 4.24 K/mm3 (1.96-9.15); NEUTROPHILS PERCENT AUTO 59 % (41-73); Platelet Count 323 K/mm3 (150-400); RDW Coefficient Variation 12.7 % (11.7-14.2); Red Blood Cell Count 4.25 M/mm3 (4.30-5.90); White Blood Cell Count 7.14 K/mm3 (4.00-11.30)
[2021-11-25 05:55] LABS: Albumin, Blood 2.8 g/dL (3.4-5.0); Albumin/Globulin Ratio 0.5 (0.8-1.8); Bilirubin, Total 0.3 mg/dL (0.1-1.0); Calcium, Blood 9.3 mg/dL (8.5-10.1); Creatinine, Blood 0.89 mg/dL (0.60-1.20); Globulin, Blood 5.4 g/dL (2.2-4.0); Potassium, Blood 4.4 mmol/L (3.5-5.5); Total Protein, Blood 8.2 g/dL (6.4-8.2)
--- NOTE | 2021-11-25 17:14 | NUR ---
SHIFT SUMMARY NO ACUTE EVENTS. PTN PLEASANT AND COOPERATIVE. PTN DID COMPLAIN OF NECK PAIN AND WAS MEDICATED WITH PRN TYLENOL, WHICH DID NOT IMPROVE HIS PAIN MUCH PER HIS REPORT, THOUGH HE DID NOT COMPLAIN AND WORE A NECK DONUT CUSHION FOR COMFORT MOST OF THE DAY. PTN CONTINENT OF BLADDER AND UP TO TOILET X3. AND DAUGHTER HERE FOR VISIT. POSSIBLE MEMORY CARE PLACEMENT.
--- NOTE | 2021-11-26 04:01 | NUR ---
SHIFT SUMMARY PT HAD AN UNEVENTFUL NIGHT. NO RESPIRATORY DISTRESS NOTED. PT WORE CPAP THIS EVENING WHILE SLEEPING AND TOLERATED WELL. CONTINENT. AMBULATED TO THE RESTROOM WITH LITTLE ASSISTANCE. SLIGHTLY UNSTEADY ON HIS FEET. REPORTED SOME GENERALIZED PAIN THAT WAS RELIEVED WITH REPOSITIONING. SLEPT WELL THROUGH MOST OF THE NIGHT. VITAL SIGNS STABLE. NO ACUTE CHANGES THIS SHIFT.
[2021-11-26 10:11] LABS: Hematocrit 40.5 % (37.0-53.0); Hemoglobin 12.9 g/dL (13.5-17.5)
--- NOTE | 2021-11-26 19:28 | NUR ---
SHIFT SUMMARY: NO ACUTE EVENTS. TARYN WAS MUCH MORE ALERT TODAY, AMBULATED IN HALLWAY X 3 AND IS USING BR PRN. HAS CHRONIC NECK PAIN, BUT DECLINED OFFERED TYLENOL. USING SBA AND FWW. GOOD APPETITE. HAD A VISIT FROM HIS DAUGHTER AND 3 SMALL GRANDCHILDREN, WHICH MADE HIM VERY HAPPY. NO RESTRAINTS IN USE THIS SHIFT.
--- NOTE | 2021-11-27 05:56 | NUR ---
SHIFT SUMMARY PT HAD AN UNEVENTFUL NIGHT. SLEPT THOUGH MOST OF THE EVENING. SOME MILD CONFUSION BUT VERY EASILY REDIRECTABLE. DID NOT REQUIRE ANY RESTRAINTS THIS EVENING. NO ACUTE EVENTS. VITAL SIGNS STABLE. AWAITING PLACEMENT.
--- NOTE | 2021-11-27 19:02 | NUR ---
SHIFT SUMMARY PATIENT A&O TO SELF AND FAMILY. PLEASANT AND COOPERATIVE WITH CARE. 1PA TO RESTROOM. FAMILY IN AND OUT T/O SHIFT. AMBULATED HALLS X2 AND TOLERATED WELL. NO SIGNIFICANT EVENTS T/O SHIFT. REPORT GIVEN TO ONCOMNG RN.
--- NOTE | 2021-11-28 04:38 | NUR ---
SHIFT SUMMARY A/O TO SELF AND FAMILY, PLEASANT AND COOPERATIVE WITH CARE. EASILY REDIRECTABLE THIS SHIFT. 1P ASSIST WITH FWW. COMPLIANT WITH CPAP. VSS, NO ACUTE CHANGES AT THIS TIME. BED IN LOWEST POSITION WITH CALL LIGHT IN REACH. WILL CONTINUE TO MONITOR AND REPORT TO ONCOMING RN.
[2021-11-28 12:25] LABS: Influenza A, PCR NEGATIVE (NEGATIVE); Influenza B, PCR NEGATIVE (NEGATIVE); Resp Syncytial Virus, PCR NEGATIVE (NEGATIVE); SARS-Cov-2 (COVID-19) PCR, MMC NEGATIVE (NEGATIVE)
--- NOTE | 2021-11-28 17:21 | NUR ---
SHIFT SUMMARY PATIENT IS ALERT AND ORIENTED TO SELF AND FAMILY. PATIENT HAS BEEN COOPERATIVE WITH CARE THIS SHIFT. PATIENT HAS BEEN A 1 PERSON ASSIST WITH WALKER. PATIENT HAS HAD NO ACUTE EVENTS THIS SHIFT. VITAL SIGNS REVIEWED. BED IS IN LOCKED AND LOWEST POSITION. CALL LIGHT IN PLACE. WILL MONITOR UNTIL SHIFT CHANGE.
--- NOTE | 2021-11-29 04:20 | NUR ---
SHIFT SUMMARY A/O TO SELF, FAMILY, AND SURROUNDINGS. PLEASANT AND COOPERATIVE WITH CARE, IMPULSIVE AT TIMES BUT EASILY REDIRECTABLE. 1P ASSIST WITH FWW. DENIES PAIN OR SOB. VSS, NO ACUTE CHANGES AT THIS TIME. BED IN LOWEST POSITION WITH CALL LIGHT IN REACH. WILL CONTINUE TO MONITOR AND REPORT TO ONCOMING RN.
--- NOTE | 2021-11-29 16:56 | NUR ---
SHIFT SUMMARY PATIENT IS ALERT AND ORIENTED TO SELF AND SITATION. PATIENT HAS HAD NO ACUTE EVENTS THIS SHIFT. PATIENT IS BEING DISCHARGED TO HOME WITH HOME HEALTH. PATIENT'S HAS BEEN CONTACTED A COUPLE TIMES BY UNDERWRITING CONSULTANT. THIS RN HAS CALLED PATIENTS TWICE WELL. VITAL SIGNS REVIEWED. PATIENT IS A 1 PERSON ASSIST TO BATHROOM. PATIENT IS PLEASENT AND COOPERATIVE WITH CARE. PATIENT HAS HAD NO COMPLAINTS OF NAUSEA, SOB, VOMITTING OR PAIN THIS SHIFT. WILL MONITOR UNTIL SHIFT CHANGE.
[2021-11-29] MEDS ORDERED: Seroquel Xr50 MG PO (18:05)
[2021-11-29] MEDS ORDERED: TRAZ100 PO (18:08)
[2021-11-29] MEDS ORDERED: GABA100 PO (18:08)
--- NOTE | 2021-11-29 18:16 | NUR ---
NURSE NOTE. PATIENT HAD DISCHARGE ORDERS. CARE MANAGEMENT HAS CALLED TWICE TO PICK PATIENT UP FOR DISCHARGE. THIS RN HAS CALLED TWICE. HAS NOT ANSWERED ANY PHONE CALLS. PATIENTS DISCHARGE PAPERWORK IS COMPLETE. MEDICATIONS NEED TO BE FAXED TO PATIENTS PHARMACY, UNKOWN AT THIS POINT. WILL TRANSFER INFORMATION TO NEXT SHIFT.
--- NOTE | 2021-11-30 05:49 | NUR ---
SHIFT SUMMARY: PT IS A/OX3. VERY PLEASANT AND COOPERATIVE WITH ALL CARE. THE PT DID USE HIS CALL LIGHT FOR NEEDS. NO CHANGES TO REPORT THIS SHIFT. WE'LL CONTINUE TO MONITOR.
--- NOTE | 2021-11-30 17:02 | NUR ---
Pt. is sittign up in a chair and welcomes my visit. Pt. is pleasant and rapport is quickly established. Pt. is a retired [employer] so we facilitated a life reveiew and discussed matters of anival and belief. Pt. displayed eveidence of being encouraged. Prayed with Pt. Pt. verblaized gratitude for his spiritual care visit, and his hope for discharge soon.
--- NOTE | 2021-11-30 17:19 | NUR ---
SHIFT SUMMARY: PT A/O X 3, STANDBY WITH WALKER. PT HAS BEEN VERY PLEASANT AND COOPERATIVE THROUGHOUT SHIFT. HE HAS BEEN UP IN CHAIR AWAKE AND WATCHING TV OR VISITING WITH FAMILY MOST OF SHIFT. HE HAS HAD NO COMPLAINTS OR CONCERNS EXCEPT ASKING IF WE KNOW WHERE HE WILL BE DISCHARGING TO. PT HAS BEEN ACCEPTING OF EXPLAINATION AND HAS NOT SHOWN SIGNS OF AGITATION THROUGHOUT SHIFT. PT SHAVED HIMSELF TODAY AND HAD VISIT WITH BOND ANALYST. NO CONCERNS OR COMPLAINTS AT THIS TIME.
--- NOTE | 2021-12-01 04:27 | NUR ---
SHIFT SUMMARY: PT IS A/OX3. HE USES THE CALL BUTTON ON OCCASION, BUT A LITTLE IMPULSIVE TO THE BATHROOM AT TIMES; 1 PA W/ FWW. HE IS TAKING PO MEDS WITH H20. HE WORE THE CPAP THROUGHOUT THE NIGHT. HE IS AWAITING PLACEMENT. WE'LL CONTINUE TO MONITOR.
--- NOTE | 2021-12-01 18:34 | NUR ---
SHIFT SUMMARY- PT ALERT AND ORIENTED TO SELF AND FAMILY, ABLE TO FOLLOW DIRECTIONS WELL. PT IS IMPULSIVE, BED AND CHAIR ALARMS BEING USED FOR PT SAFETY. PT HAS HAD NO ACUTE CHANGES T/O THE DAY. PT CURRENTLY SITTING UP IN A CHAIR, NO S&S OF DISTRESS WILL CTM AND PASS ON TO NIGHT RN IN REPORT.
--- NOTE | 2021-12-02 06:00 | NUR ---
SUMMARY NO NEW ISSUES NOTED. PT HAS BEEN PLESANT AND COPPERATIVE. PT HAS VOIDED WELL THROUGHOUT SHIFT. PT HAS BEEN SLEEPING SOUNDLY THROUGHOUT SHIFT. CALL LIGHT IN REACH AND BED ALARM ON.
--- NOTE | 2021-12-02 09:10 | NUR ---
SPOKE WITH ; WILL BE IN TO MINING CONSULTANT PT AROUND 10:30 FOR D/C
--- NOTE | 2021-12-02 11:14 | NUR ---
PARTIAL SHIFT SUMMARY- PT A&O X3. PT VSS. PT APPETITE VERY GOOD. PT AMBULATING WELL IN HALLWAY. WILL CONTINUE TO MONITOR. D/C- PT D/C TO HOME WITH . DISCUSSED PAPERWORK WITH , SENT IN HAND. PT WHEELCHAIR TO AUTOMOBILE FOR HOME. ALL BELONGINGS WITH .
== END 2021-12-02 11:10 | disposition home health service (06) | DRG 871 ==
LOC: ER 14:52 → MEDS 19:20 → ENPENDDIS 11-29 17:56 → MEDS 12-02 11:10
PROVIDERS: Family Medicine; Physician Assistant; Student in an Organized Health Care Education/Training Program; ADMIT Internal Medicine
DX: A41.9 Sepsis, unspecified organism (principal); J18.9 Pneumonia, unspecified organism; M62.82 Rhabdomyolysis; F05 Delirium due to known physiological condition; R44.0 Auditory hallucinations; E87.2 Acidosis; Z20.822 Contact with and (suspected) exposure to COVID-19; R65.20 Severe sepsis without septic shock; M19.90 Unspecified osteoarthritis, unspecified site; G89.29 Other chronic pain; M54.9 Dorsalgia, unspecified; R45.1 Restlessness and agitation; F91.8 Other conduct disorders; M54.2 Cervicalgia; E86.0 Dehydration; Z98.890 Other specified postprocedural states; Z78.1 Physical restraint status; Z87.891 Personal history of nicotine dependence; Z79.899 Other long term (current) drug therapy
CPT/HCPCS: 0241U; 36415; 70450; 71045; 80048; 80053; 81001; 82550; 82553; 83605; 83880; 84484; 85014; 85018; 85025; 87040; 87086; 92526; 92610; 93005; 93010; 93971; 94660; 94760; 94761; 94762; 96365; 96375; 97110; 97116; 97162; 97165; 97530; 97535; 99285-25; A9270; J0456; J0696; J1650; J7030; J7050

== ENCOUNTER 2021-12-07 20:53 | Emergency (ER) | payer MEDICARE ==
[~2021-12-07] VITALS: Ht 177.8 cm; Wt 68.0 kg
[~2021-12-07 20:53] MED LIST changes: +AMOCLA875 PO; +AZIT500 PO; +FURO20 PO; +GABA100 PO; +POTA10T PO; +ROBITUSSIN DM PO; +Seroquel Xr50 MG PO; +TRAZ100 PO; +VISBIOME 112.51 EACH PO
[2021-12-07 22:20] LABS: Influenza A, PCR NEGATIVE (NEGATIVE); Influenza B, PCR NEGATIVE (NEGATIVE); Resp Syncytial Virus, PCR NEGATIVE (NEGATIVE)
[2021-12-07 23:56] LABS: SARS-Cov-2 (COVID-19) PCR, MMC POSITIVE (NEGATIVE)
== END 2021-12-08 12:14 | disposition home or self-care (01) ==
LOC: ER 20:53
PROVIDERS: Emergency Medicine
DX: U07.1 COVID-19 (principal); G31.84 Mild cognitive impairment of uncertain or unknown etiology; F05 Delirium due to known physiological condition; Z79.899 Other long term (current) drug therapy; Z87.891 Personal history of nicotine dependence
CPT/HCPCS: 0241U; 99284; A9270

== ENCOUNTER 2022-08-23 20:53 | Observation (INO) | payer MEDICARE ==
[~2022-08-23] VITALS: Ht 177.8 cm; Wt 69.2 kg
[2022-08-23 21:35] LABS: BASOPHILS ABSOLUTE AUTO 0.03 K/mm3 (0.00-0.23); BASOPHILS PERCENT AUTO 0 % (0-2); EOSINOPHILS ABSOLUTE AUTO 0.07 K/mm3 (0.00-0.68); EOSINOPHILS PERCENT AUTO 1 % (0-6); Hematocrit 41.1 % (37.0-53.0); Hemoglobin 13.8 g/dL (13.5-17.5); IMMATURE GRAN ABSOLUTE AUTO 0.02 K/mm3 (0.00-0.10); IMMATURE GRAN PERCENT AUTO 0 % (0-1); LYMPHOCYTES ABSOLUTE AUTO 1.15 K/mm3 (0.84-5.20); LYMPHOCYTES PERCENT AUTO 14 % (21-46); MONOCYTES PERCENT AUTO 11 % (4-13); Mean Corpuscular HGB 30.7 pg (26.0-34.0); Mean Corpuscular HGB Conc 33.6 g/dL (31.5-36.5); Mean Corpuscular Volume 91 fL (80-100); Mean Platelet Volume 10.7 fL (9.1-12.4); NEUTROPHILS ABSOLUTE AUTO 6.36 K/mm3 (1.96-9.15); NEUTROPHILS PERCENT AUTO 75 % (41-73); Platelet Count 197 K/mm3 (150-400); RDW Coefficient Variation 12.6 % (11.7-14.2); RDW Standard Deviation 41.9 fL (35.1-46.3); White Blood Cell Count 8.53 K/mm3 (4.00-11.30)
[2022-08-23 21:53] LABS: Albumin, Blood 4.3 g/dL (3.4-5.0); Albumin/Globulin Ratio 0.9 (0.8-1.8); Bilirubin, Total 0.4 mg/dL (0.1-1.0); Bun/Creatinine Ratio 19.8 (12.0-20.0); Calcium, Blood 9.7 mg/dL (8.5-10.1); Creatinine, Blood 1.16 mg/dL (0.60-1.20); Potassium, Blood 3.9 mmol/L (3.5-5.5); Total Protein, Blood 9.3 g/dL (6.4-8.2)
[2022-08-23 22:58] LABS: Creatine Kinase MB Index 1.5 (0.0-4.0)
[2022-08-24 02:05] LABS: Source, Urine Clean Catch
[2022-08-24 02:08] LABS: Bilirubin, Urine Neg (Neg); Blood, Urine 2+ (Neg); Glucose Qualitative, Urine Neg (Neg); Ketones, Urine Neg (Neg); Leukocyte Esterase, Urine Neg (Neg); Nitrite, Urine Neg (Neg); Protein, Urine Neg (Neg); Urobilinogen, Urine NORM (Normal)
[2022-08-24] MEDS ORDERED: SPIR25 PO (02:08)
[2022-08-24 02:21] LABS: Appearance, Urine Clear (Clear); Color, Urine Yellow (P-Yellow)
[2022-08-24 02:22] LABS: Bacteria Rare /hpf; Squamous Epithelial Cells Not Seen /hpf (Few); White Blood Cells, Urine 0-2 /hpf (0-5)
[2022-08-24 05:03] LABS: BASOPHILS ABSOLUTE AUTO 0.03 K/mm3 (0.00-0.23); BASOPHILS PERCENT AUTO 0 % (0-2); EOSINOPHILS ABSOLUTE AUTO 0.08 K/mm3 (0.00-0.68); EOSINOPHILS PERCENT AUTO 1 % (0-6); Hematocrit 35.7 % (37.0-53.0); Hemoglobin 11.9 g/dL (13.5-17.5); IMMATURE GRAN ABSOLUTE AUTO 0.02 K/mm3 (0.00-0.10); IMMATURE GRAN PERCENT AUTO 0 % (0-1); LYMPHOCYTES ABSOLUTE AUTO 1.17 K/mm3 (0.84-5.20); LYMPHOCYTES PERCENT AUTO 15 % (21-46); MONOCYTES PERCENT AUTO 11 % (4-13); Mean Corpuscular HGB 30.6 pg (26.0-34.0); Mean Corpuscular HGB Conc 33.3 g/dL (31.5-36.5); Mean Corpuscular Volume 92 fL (80-100); Mean Platelet Volume 10.8 fL (9.1-12.4); NEUTROPHILS ABSOLUTE AUTO 5.69 K/mm3 (1.96-9.15); NEUTROPHILS PERCENT AUTO 72 % (41-73); Platelet Count 173 K/mm3 (150-400); RDW Coefficient Variation 12.6 % (11.7-14.2); RDW Standard Deviation 42.5 fL (35.1-46.3); Red Blood Cell Count 3.89 M/mm3 (4.30-5.90); White Blood Cell Count 7.89 K/mm3 (4.00-11.30)
--- NOTE | 2022-08-24 05:32 | NUR ---
PT ARRIVED TO FLOOR AND WAS TRANSFRED TO BED FROM [facility] WITH 3 PERSON ASSIST WAS SLID OVER. PT UNABLE TO GIVE INFORMATION FOR MEDICATIONS OR HEALTH HX, BUT WAS EMPHATIC, THAT HE DID NOT WANT A FLUE VAC. PT WANTING TO BE LEFT ALONE SO HE COULD SLEEP. CALL FROM TELE PT HAVING ST ELEVATION. CALLED EKG DONE BBB SHOWN. CALL LIGHT IN [facility] BED ALRM ON.
[2022-08-24 06:14] LABS: Albumin, Blood 3.6 g/dL (3.4-5.0); Albumin/Globulin Ratio 0.9 (0.8-1.8); Bilirubin, Total 0.7 mg/dL (0.1-1.0); Bun/Creatinine Ratio 17.4 (12.0-20.0); Calcium, Blood 8.9 mg/dL (8.5-10.1); Creatinine, Blood 1.15 mg/dL (0.60-1.20); Globulin, Blood 4.2 g/dL (2.2-4.0); Magnesium, Blood 2.4 mg/dL (1.6-2.4); Potassium, Blood 4.1 mmol/L (3.5-5.5); Total Protein, Blood 7.8 g/dL (6.4-8.2)
--- NOTE | 2022-08-24 16:22 | NUR ---
ALERT AND ORIENTED X2-3, VERY PLEASANT TO CARE, IMPULSIVE TO TRANSFER, BED/CHAIR ALARM, EASILY REDIRECTED, TO BRING IN HOME CPAP TOMORROW. IVF INFUSING, BSU, WAITING FOR POSSIBLE PLACEMENT, UNABLE TO CARE FOR PATIENT WITH FREQUENT FALLS, WILL RELAY TO PM RN
--- NOTE | 2022-08-25 04:17 | NUR ---
SHIFT MOSTLY UNREMARKABLE. PT TOOK 2100 MEDICATIONS WITHOUT DIFFICULTY. PER DAY SHIFT REPORT PT USES CPAP AT NIGHT AT HOME. PLAN WAS FOR PT TO USE NC WHILE SLEEPING WHILE WAITING FOR HOME CPAP TO BE BROUGHT IN. PT REFUSED NC AND REQUESTED CPAP IN ITS PLACE. SPOKE WITH HOSPITALIST AND ORDERED CPAP PROTOCOL. CPAP APPLIED BY RT AND HAS BEEN IN PLACE THROUGHOUT REMAINDER OF SHIFT. PT HAS SLEPT WELL OUTSIDE OF FEW IMPULSIVE OOB MOMENTS. EASILY REDIRECTED. VERY PLEASANT. COOPERATIVE WITH CARE. AOX2-3 THROUGHOUT SHIFT. CALL LIGHT LEFT WITHIN REACH.
[2022-08-25 08:05] LABS: BASOPHILS ABSOLUTE AUTO 0.03 K/mm3 (0.00-0.23); BASOPHILS PERCENT AUTO 1 % (0-2); EOSINOPHILS ABSOLUTE AUTO 0.11 K/mm3 (0.00-0.68); EOSINOPHILS PERCENT AUTO 2 % (0-6); Hematocrit 37.2 % (37.0-53.0); Hemoglobin 12.3 g/dL (13.5-17.5); IMMATURE GRAN ABSOLUTE AUTO 0.02 K/mm3 (0.00-0.10); IMMATURE GRAN PERCENT AUTO 0 % (0-1); LYMPHOCYTES ABSOLUTE AUTO 1.09 K/mm3 (0.84-5.20); LYMPHOCYTES PERCENT AUTO 19 % (21-46); MONOCYTES ABSOLUTE AUTO 0.69 K/mm3 (0.16-1.47); MONOCYTES PERCENT AUTO 12 % (4-13); Mean Corpuscular HGB Conc 33.1 g/dL (31.5-36.5); Mean Corpuscular Volume 94 fL (80-100); Mean Platelet Volume 11.3 fL (9.1-12.4); NEUTROPHILS ABSOLUTE AUTO 3.82 K/mm3 (1.96-9.15); NEUTROPHILS PERCENT AUTO 66 % (41-73); Platelet Count 161 K/mm3 (150-400); RDW Coefficient Variation 12.8 % (11.7-14.2); RDW Standard Deviation 44.3 fL (35.1-46.3); Red Blood Cell Count 3.97 M/mm3 (4.30-5.90); White Blood Cell Count 5.76 K/mm3 (4.00-11.30)
[2022-08-25 08:20] LABS: Bun/Creatinine Ratio 20.7 (12.0-20.0); Calcium, Blood 8.7 mg/dL (8.5-10.1); Creatinine, Blood 0.97 mg/dL (0.60-1.20); Potassium, Blood 3.8 mmol/L (3.5-5.5)
--- NOTE | 2022-08-25 18:10 | NUR ---
NO ACUTE CHANGES, MENTATION IMPROVED, ALERT AND ORIENTED TO SELF, PERSON, PLACE, AND THINGS, FORGETFUL AT TIMES, NEW IV TO LEFT FA, PATIENT IMPULSIVE BUT PURPOSFUL FOR NEEDS, BED/CHAIR ALARM ON, PLEASANT TO CARE, VISITED TODAY, CALL LIGHT WITH IN REACH
--- NOTE | 2022-08-25 21:00 | NUR ---
CALLED REGARDING TELEMETRY CALLING AND NOTIFING ME THAT THE PTS ST ELAVATION HAD CHANGED FROM 4.8 TO 5.6. PROFESSOR CRIMINAL JUSTICE HAD DID A EKG AND THERE WERE NO ACUTE CHANGES COMPARED TO EKG FROM THE PREVIOUS DAY. ADDITIONALLY THE PT DENIES ANY SOB OR CHEST PAIN/PRESSURE. VITAL SIGNS ARE STABLE. RELAYED ALL INFORMATION AND FINDINGS TO HOSPITALIST. NO NEW ORDERS AT THIS TIME.
--- NOTE | 2022-08-26 04:30 | NUR ---
SHIFT SUMMARY; THE PT IS AXO X2-3 AND ON BEDREST. THE PT IS ABLE TO TRANSFER FROM THE BED TO THE BEDSIDE CHAIR WITH A 2 ASSIST. HOWEVER, THE PT SOMETIMES IS UNABLE TO FOLLOW DIRECTION AND EASILY BECOMES CONFUSED. THE PT IS COMPLAINT W/STAFF BUT REQUIRES A LOT OF DIRECTION TO DO SO. TELE IS IN PLACE, SINUS RYTHM IN THE 60'S WITH A BBB. CPAP IS IN PLACE WITH O2 SATS GREATER THAN 92%. THE PT DENIES ANY SOB, CHEST PAIN/PRESSURE, N/V OR PAIN. CURRENTLY THE PT IS SLEEPING IN BED WITH THE BED IN THE LOWEST POSITION AND THE CALL LIGHT AT BEDSIDE.
--- NOTE | 2022-08-26 07:34 | NUR ---
ASSUMED CARE OF PT- BEDSIDE REPORT COMPLETED WITH NIGHT RN. PT IN BED, CPAP IN PLACE. PT WOKE TO STAFF VOICES AND ASKED FOR THE WATER IN HIS CPAP TO BE FILLED, REASSURED HIM IT WAS NEAR THE MAX FILL LINE, THE PT ASKED STAFF 3 TIMES DURRING REPORT ABOUT THIS. PER REPORT THE PT SUNDOWNS BUT THERE ARE NO AGRESSIVE BEHAVIORS RELATED TO IT, HE JUST BECOMES MORE CONFUSED AND A LITTLE MORE DISORIENTED AT NIGHT. PT HAS HAD SEVERAL FALLS AT HOME, WITH THE SPOUSE NOTING AN INCREASED SHUFFLING GATE AT HOME.
--- NOTE | 2022-08-26 13:20 | NUR ---
CALLED DR REDDY. PT ST ELEVATION HAS JUMPED TO GREATER THAN 7. MD AWARE NO TROPONINS AT THIS TIME STAT EKG ORDERED. PT DENIES SOB, OR CP AT THIS TIME. CNAS ASSISTING THE PT BACK TO BED. SET OF VITALS BEING OBTAINED NOW.
--- NOTE | 2022-08-26 18:01 | NUR ---
SHIFT SUMMARY- PT ALERT AND ORIENTED TO SELF, FAMILY AND PLACE HE IS UNSURE OF THE DATE AND YEAR. PT IS CURRENTLY UP IN A CHAIR EATING DINNER. BED AND CHAIR ALARMS ARE IN PLACE FOR PT SAFETY HE IS FORGETFUL. PT PER REPORT, NOTED A BIT OF INCREASED CONFUSION AT THIS POINT, NO IRRITABILITY NOTED. PT COOPERATIVE WITH CARE. NO CURRENT S&S OF DISTRESS NOTED AT THIS TIME WILL CTM AND PASS ON TO NIGHT RN IN BEDSIDE REPORT.
--- NOTE | 2022-08-27 05:10 | NUR ---
SUMMARY: NO ACUTE EVENTS OVERNIGHT. PATIENT PLEASANTLY CONFUSED. INCONTINENT OVERNIGHT. ASSISTED TO BEDSIDE COMMODE WITH 2X ASSIST FOR BOWEL MOVEMENT. IV FLUIDS RUNNING @125ML/HR. PATIENT DID NOT ATTEMPT TO GET OUT OF BED. SLEPT WEARING CPAP. VSS.
[2022-08-27 11:18] LABS: Influenza A, PCR NEGATIVE (NEGATIVE); Influenza B, PCR NEGATIVE (NEGATIVE); Resp Syncytial Virus, PCR NEGATIVE (NEGATIVE); SARS-Cov-2 (COVID-19) PCR, MMC NEGATIVE (NEGATIVE)
[2022-08-27] MEDS ORDERED: Acetaminophen325 M1 PO (12:20)
[2022-08-27] MEDS ORDERED: DOCU100 PO (12:20)
== END 2022-08-27 17:30 ==
LOC: ER 20:53 → MEDS 20:54
PROVIDERS: Family Medicine; Student in an Organized Health Care Education/Training Program; ADMIT Student in an Organized Health Care Education/Training Program
DX: M62.82 Rhabdomyolysis (principal); F03.90 Unspecified dementia, unspecified severity, without behavioral disturbance, psychotic disturbance, mood disturbance, and anxiety; I44.7 Left bundle-branch block, unspecified; I35.0 Nonrheumatic aortic (valve) stenosis; E46 Unspecified protein-calorie malnutrition; G62.9 Polyneuropathy, unspecified; Z87.891 Personal history of nicotine dependence; Z79.899 Other long term (current) drug therapy
CPT/HCPCS: 0241U; 36415; 72100; 73030; 80048; 80053; 81001; 82550; 82553; 83735; 85025; 93005; 93010; 94660; 94762; 96360; 96361; 96372; 97110; 97110-CQ; 97129; 97161; 97165; 97530; 97535; 99285-25; A9270; G0378; J1650; J7030

== ENCOUNTER 2023-04-16 11:47 | Inpatient (IN) | payer MEDICARE ==
[~2023-04-16] VITALS: Ht 177.8 cm; Wt 63.0 kg
[~2023-04-16 11:47] MED LIST changes: +Acetaminophen325 M1 PO; +DOCU100 PO; -FURO20 PO; +FURO40 PO; +SEROQUEL25 MG PO; +SPIR25 PO
[2023-04-16 12:16] LABS: BASOPHILS ABSOLUTE AUTO 0.02 K/mm3 (0.00-0.23); BASOPHILS PERCENT AUTO 0 % (0-2); EOSINOPHILS ABSOLUTE AUTO 0.03 K/mm3 (0.00-0.68); EOSINOPHILS PERCENT AUTO 0 % (0-6); Hematocrit 36.1 % (37.0-53.0); Hemoglobin 12.2 g/dL (13.5-17.5); IMMATURE GRAN ABSOLUTE AUTO 0.02 K/mm3 (0.00-0.10); IMMATURE GRAN PERCENT AUTO 0 % (0-1); LYMPHOCYTES PERCENT AUTO 14 % (21-46); MONOCYTES PERCENT AUTO 11 % (4-13); Mean Corpuscular HGB 31.4 pg (26.0-34.0); Mean Corpuscular HGB Conc 33.8 g/dL (31.5-36.5); Mean Corpuscular Volume 93 fL (80-100); NEUTROPHILS ABSOLUTE AUTO 5.91 K/mm3 (1.96-9.15); NEUTROPHILS PERCENT AUTO 74 % (41-73); Platelet Count 157 K/mm3 (150-400); RDW Coefficient Variation 12.6 % (11.7-14.2); RDW Standard Deviation 43.4 fL (35.1-46.3); Red Blood Cell Count 3.88 M/mm3 (4.30-5.90); White Blood Cell Count 7.98 K/mm3 (4.00-11.30)
[2023-04-16 12:55] LABS: Albumin, Blood 3.9 g/dL (3.4-5.0); Albumin/Globulin Ratio 0.8 (0.8-1.8); Bilirubin, Total 0.3 mg/dL (0.1-1.0); Bun/Creatinine Ratio 13.7 (12.0-20.0); Calcium, Blood 9.3 mg/dL (8.5-10.1); Creatinine, Blood 1.31 mg/dL (0.60-1.20); Globulin, Blood 4.7 g/dL (2.2-4.0); Potassium, Blood 4.1 mmol/L (3.5-5.5); Total Protein, Blood 8.6 g/dL (6.4-8.2)
[2023-04-16 17:43] VITALS: BP 136/69
[2023-04-16 18:13] LABS: Source, Urine Straight Cath
[2023-04-16 18:17] LABS: International Normalized Ratio 0.98; Prothrombin Time Results 10.3 Sec (9.7-11.5)
[2023-04-16 18:34] LABS: Appearance, Urine Clear (Clear); Bilirubin, Urine Neg (Neg); Blood, Urine 1+ (Neg); Glucose Qualitative, Urine Neg (Neg); Ketones, Urine Neg (Neg); Leukocyte Esterase, Urine Neg (Neg); Nitrite, Urine Neg (Neg); Protein, Urine Neg (Neg); Specific Gravity, Urine 1.005 (1.003-1.022); Urobilinogen, Urine NORM (Normal)
[2023-04-16 18:58] LABS: Color, Urine Pale Yellow (P-Yellow)
--- NOTE | 2023-04-16 18:58 | NUR ---
PATIENT ADMIT TO PCU 09. USED SLIDE SHEET TO TRANSFER. ABLE TO ANSWER ORIENTING QUESTIONS ABOUT HIMSELF BUT FUZZY ON DETAILS OF WHY HE IS HERE. SELIN CALLED AND MED REC CONFIRMED. PERRLA. DENIES NUMBNESS/TINGLING. OVERALL WEAK AND UNSTEADY. MOVING EXTREMITIES EQUALLY, NO DEFICIT NOTED. ON ROOM AIR SATING ABOVE 95%. PER PATIENT USES CPAP AT HOME. DENIES SOB/COUGH. OCCASIONAL COUGH NOTED. LUNGS SOUNDING CLEAR AND DIM IN BASES, EVEN AND UNLABORED RESPIRATIONS. TELE SHOWING SR WITH HR 60'S. DENIES CHEST PAIN/PRESSURE/PALPITATIONS. WAITING FOR PHARMACY HEPARIN ORDERS. NS INFUSING PER EMAR. TRENDING TROP. ECHO RESULTED AND DR. ARRIOLA CALLED TO NOTIFY. THIS RN ASKED DR. ARRIOLA IF CARDIAC CONSULT WAS NECESSARY. NO NEW ORDERS FOR THIS RN TO PLACE. BOWEL TONES PRESENT. PATIENT DRINKING WATER AND EATING APPLESAUCE WITH PILLS. CONDOM CATH PLACED. URINE SAMPLE SENT. SKIN C/D/I. ATTENDS IN PLACE. PATIENT ORIENTED TO ROOM AND UNIT. CALL LIGHT IN REACH. PATIENT ABLE TO VERBALIZE CALL LIGHT INSTRUCTIONS BACK TO THIS RN. BED ALARM IN PLACE.
[2023-04-16 19:00] LABS: Bacteria Few /hpf; Squamous Epithelial Cells Few /hpf (Few); White Blood Cells, Urine 0-2 /hpf (0-5)
[2023-04-16 19:41] VITALS: BP 135/77
[2023-04-16 23:34] VITALS: BP 125/60
[2023-04-17 03:44] VITALS: BP 126/59
[2023-04-17 03:52] LABS: Hematocrit 37.3 % (37.0-53.0); Hemoglobin 12.5 g/dL (13.5-17.5); Mean Corpuscular HGB 31.8 pg (26.0-34.0); Mean Corpuscular HGB Conc 33.5 g/dL (31.5-36.5); Mean Corpuscular Volume 95 fL (80-100); Mean Platelet Volume 11.2 fL (9.1-12.4); Platelet Count 157 K/mm3 (150-400); RDW Coefficient Variation 12.4 % (11.7-14.2); RDW Standard Deviation 43.6 fL (35.1-46.3); Red Blood Cell Count 3.93 M/mm3 (4.30-5.90); White Blood Cell Count 10.19 K/mm3 (4.00-11.30)
--- NOTE | 2023-04-17 04:26 | NUR ---
SHIFT SUMMARY NO ACUTE CHANGES OVERNIGHT. PT DENIES CHEST PAIN/PRESSURE. HEP GTT AND NS INFUSING PER EMAR. BP STABLE. SR ON MONITOR. ON CPAP WHILE SLEEPING WITH SPO2 >92%. PT A&O X3. FORGETFUL AT TIMES. PT HAS BEEN CALM AND COOPERATIVE WITH CARE. SEE ASSESSMENT. BED IN LOWEST POSITION AND CALL LIGHT WITHIN REACH. THIS RN WILL REPORT TO ONCOMING DAYSHIFT RN.
[2023-04-17 05:06] LABS: Alanine Aminotransfer (ALT/SGP 27 U/L (12-78); Albumin, Blood 3.7 g/dL (3.4-5.0); Albumin/Globulin Ratio 0.8 (0.8-1.8); Alk Phos 95 U/L (50-136); Anion Gap 5 mmol/L (6-16); Aspartate Aminotrans (AST/SGOT 113 U/L (12-37); Bilirubin, Total 0.5 mg/dL (0.1-1.0); Blood Urea Nitrogen 15 mg/dL (8-24); Bun/Creatinine Ratio 14.3 (12.0-20.0); CHOL/HDL RATIO 2.9; CO2, Blood 31 mmol/L (21-32); Chloride, Blood 101 mmol/L (98-108); Cholesterol 157 mg/dL (50-200); Creatinine, Blood 1.05 mg/dL (0.60-1.20); Globulin, Blood 4.6 g/dL (2.2-4.0); Glomerular Filtration Rate 72 (60-); Glucose, Blood 118 mg/dL (70-99); HDL Cholesterol 54 mg/dL (>39); LDL/HDL RATIO 1.7; Low Density Lipoprotein Chol 93 mg/dL (0-110); Magnesium, Blood 2.5 mg/dL (1.6-2.4); Potassium, Blood 4.2 mmol/L (3.5-5.5); Sodium, Blood 137 mmol/L (136-145); Total Protein, Blood 8.3 g/dL (6.4-8.2); Triglycerides 50 mg/dL (30-160); Very Low Density Lipoprot Chol 10 mg/dL (6-32)
--- NOTE | 2023-04-17 07:30 | NUR ---
INITIAL ASSESSMENT: Patient is awake lying in bed reading his bible. He is alert and oriented to self, location, situation, the president, and the month. When I asked him the year he thought it was 2016. He denies any chest pain or pressure at this time. HRR, SR in the 70s-80s. VSS. LS DIM T/O, Biox is 100% on RA. BT+. PPP. Heparin gtt infusing at 14u/kg/hr. He denies needs at this time. Call light in reach.
[2023-04-17 07:52] VITALS: BP 130/67
[2023-04-17 11:05] VITALS: BP 111/61
--- NOTE | 2023-04-17 12:58 | NUR ---
Update: Patient is sitting up in the chair reading his Bible. VSS. Patient has been OOB ambulating with therapy with the FWW, recommendation for home with home health. Update given to Angelica. Patient denies needs at this time. Call light in reach. Chair alarm on for safety.
--- NOTE | 2023-04-17 15:30 | NUR ---
Update: Patients is at the bedside, she has been updated on cardiology's plan for medical management. verbalizes she has been having alot of difficulty caring for the patient at home and he is almost becoming too dependent on her for care. She has injured herself assisting him. She states he was in SNF about a year ago, "he got much stronger and was great when he came home." She states shortly after he was discharged from SNF and home health he started to become more deconditioned and was having more freuqent falls. I talked with the therapist about the improvement the patient had with SNF. I talked with the patient and his regarding his code status. The patient and are both in agreement that the patient would not want to be resusitated. Call placed to , patients code status changed to DNR.
[2023-04-17 16:04] VITALS: BP 140/70
--- NOTE | 2023-04-17 18:16 | NUR ---
Summary: Patient has been awake and up in the recliner for the majority of the day. He has a history of dementia, his orientation waxes and wanes. He has not had any C/O pain this shift. HRR, he has been SR with a BBB with a rate in the 70s. Blood pressure stable. LS DIM in the bases, biox has been high 90s on RA. BT+, pt had a couple of bowel movements this shift. He was able to work with PT and OT, he has a recommendation for SNF from PT. No acute changes this shift. Will report to oncoming RN.
[2023-04-17 19:42] VITALS: BP 125/64
[2023-04-17 23:19] VITALS: BP 132/68
--- NOTE | 2023-04-18 05:31 | NUR ---
SHIFT SUMMARY NO ACUTE CHANGES OVERNIGHT. PT A&O X4, WITH OCCASIONAL EPISODES OF CONFUSION. ABLE TO BE REORIENTED EASILY. COOPERATIVE WITH CARE. 1P ASSIST WITH FWW TO BATHROOM. SR BBB 60'S. BP STABLE. DENIES CHEST PAIN/PRESSURE. ON RA WTIH SPO2 >92% WHILE AWAKE; CPAP USED AT NOC. PT HAS BEEN CONTINENT/INCONTINENT OF URINE. BED ALARM ON FOR SAFETY. BED IN LOWEST POSITION AND CALL LIGHT WITHIN REACH. THIS RN WILL REPORT TO ONCOMING DAYSHIFT RN.
--- NOTE | 2023-04-18 06:06 | NUR ---
PATIENT UPDATE PATIENT REFUSING LABS TO BE DRAWN AT THIS TIME; WILL CONTINUE TO ATTEMPT LATER
--- NOTE | 2023-04-18 09:00 | NUR ---
care assumption this rn assumed care at 0700. vital signs stable. patient is alert and oriented 2. patient has baseline dementia and confusion. patient incontient/contient of urine. see shift assessment for further detials. patient is a one assist with front wheel walker. patient has bed alarm on when in bed and chair alarm on when in chair. plan of care is up to date. call light within reach.
[2023-04-18 15:56] VITALS: BP 130/60
--- NOTE | 2023-04-18 17:51 | NUR ---
shift summary neuro remains unchaged. vital signs stable. no acute changes. plan of care is up to date. medical status with tele. patient sat in chair most of the day. patient in good mood joking with staff and easily directable. patient does not use call light, patient just trys to get out of chair or bed and sets alarm off.
[2023-04-18 19:55] VITALS: BP 136/73
[2023-04-19 03:37] VITALS: BP 131/72
--- NOTE | 2023-04-19 04:28 | NUR ---
SHIFT SUMMARY NO ACUTE CHANGES OVERNIGHT. PT WITH SEVERAL EPISODES OF CONFUSION T/O THIS SHIFT. PT OCCASIONALLY AGGITATED WITH PLAN OF CARE AND WITH REORIENTATION ATTEMPTS. A&O X2-4. BP STABLE. SR BBB WITH HR 70'S. ON RA WITH SPO2 >92%; USING CPAP FOR SLEEP. PT REPOSITIONING SELF IN BED WELL. CONTINENT/INCONTINENT OF URINE. SEVERAL LINEN CHANGES DONE DURING THIS SHIFT. BED ALARM ON FOR SAFETY. BED IN LOWEST POSITION AND CALL LIGHT WITHIN REACH. THIS RN WILL REPORT TO ONCOMING DAYSHIFT RN.
[2023-04-19 07:25] VITALS: BP 140/64
--- NOTE | 2023-04-19 10:15 | NUR ---
care assumption this rn assumed care at 0700. vital signs stable. tele sr. patient is alert and oriented x2. patient knows that he is in [place], but does not know why he is at the hospital or knew where he was. this rn educated patient as to why he is at the hospital. patient has a baseline of dementia. patient does not use call light despite this rn educating the patient multiple times. patient will just attempt to get up and set off bed or chair alarm. patient reports no pain, chest pain/pressure, or shortness of breaht. see shift assessment for further detials. patient worked with physical therapy. patient is a one person stand by with a front wheel walker. patient walked around the unit this am. see physical therapy assessment for further detials. a alf facility is not recommended at this time. patient is medically stable and discharge orders placed. care management rn on the phone with to discuss home health and resoucres. does not agree with plan of discharge and has appealed. care management rn discussed this with and discussed it with md barfield. plan of care is up to date. patient has a room on medical floor. will give report to medical floor rn. this rn updated on patient new room number and that he will be moved there. informed patient of moving to new room.
[2023-04-19 11:36] VITALS: BP 112/51
[2023-04-19 12:06] LABS: BASOPHILS ABSOLUTE AUTO 0.04 K/mm3 (0.00-0.23); BASOPHILS PERCENT AUTO 1 % (0-2); EOSINOPHILS ABSOLUTE AUTO 0.06 K/mm3 (0.00-0.68); EOSINOPHILS PERCENT AUTO 1 % (0-6); Hematocrit 33.4 % (37.0-53.0); Hemoglobin 11.5 g/dL (13.5-17.5); IMMATURE GRAN ABSOLUTE AUTO 0.04 K/mm3 (0.00-0.10); IMMATURE GRAN PERCENT AUTO 1 % (0-1); LYMPHOCYTES ABSOLUTE AUTO 1.09 K/mm3 (0.84-5.20); LYMPHOCYTES PERCENT AUTO 14 % (21-46); MONOCYTES ABSOLUTE AUTO 1.13 K/mm3 (0.16-1.47); MONOCYTES PERCENT AUTO 15 % (4-13); Mean Corpuscular HGB 31.8 pg (26.0-34.0); Mean Corpuscular HGB Conc 34.4 g/dL (31.5-36.5); Mean Corpuscular Volume 92 fL (80-100); Mean Platelet Volume 11.7 fL (9.1-12.4); NEUTROPHILS ABSOLUTE AUTO 5.38 K/mm3 (1.96-9.15); NEUTROPHILS PERCENT AUTO 70 % (41-73); Platelet Count 162 K/mm3 (150-400); RDW Coefficient Variation 12.4 % (11.7-14.2); RDW Standard Deviation 42.3 fL (35.1-46.3); Red Blood Cell Count 3.62 M/mm3 (4.30-5.90); White Blood Cell Count 7.74 K/mm3 (4.00-11.30)
[2023-04-19 12:30] LABS: Bun/Creatinine Ratio 23.3 (12.0-20.0); Calcium, Blood 8.8 mg/dL (8.5-10.1); Creatinine, Blood 1.03 mg/dL (0.60-1.20); Potassium, Blood 4.1 mmol/L (3.5-5.5)
--- NOTE | 2023-04-19 13:46 | NUR ---
REPORT CALLED TO BETSY SHER ON MEDICAL
--- NOTE | 2023-04-19 14:28 | NUR ---
RECEIVED REPORT AND ASSUMED CARE OF THE PT. PT SITTING UP IN THE RECLINER AT BEDSIDE WITH CHAIR ALARM IN PLACE, CALL LIGHT IN REACH. PT DENIES ANY NEEDS AT THIS TIME, VOICED CONCERN THAT HIS WILL NOT BE ABLE TO FIND HIM IN THE NEW ROOM. ASSURED PT STAFF WILL DIRECT HIS TO THE ROOM.
--- NOTE | 2023-04-19 17:57 | NUR ---
RECEIVED CALL FROM PCU SOLE LEVELER MACHINE WHO STATED THAT PT'S HEART RHYTHM CONTINUES TO TREND UPWARDS. VERBAL ORDER OBTAINED FOR EKG.
--- NOTE | 2023-04-19 19:26 | NUR ---
SHIFT SUMMARY: TARYN IS A&OX2. VSS, NO ACUTE EVENTS THIS SHIFT. PT IS TOLERATING PO INTAKE WELL, ATTENDS IN PLACE, BED/CHAIR ALARM IN PLACE. HE IS SITTING UP IN THE BEDSIDE CHAIR WITH THE CALL LIGHT IN REACH. HE IS ABLE TO IDENTIFY WHICH BUTTONG TO PUSH ON THE CALL LIGHT TO [facility] ASSISTANCE. REPORT WAS GIVEN TO VISUAL EDUCATION TEACHER RN.
[2023-04-19 21:02] VITALS: BP 116/59
[2023-04-20 03:24] VITALS: BP 121/69
--- NOTE | 2023-04-20 04:05 | NUR ---
SHIFT SUMMARY PT CALM AND COOPERATIVE WITH CARE. PT SLEPT IN RECLINER FOR SOME TIME BEFORE ALLOWING US TO HELP HIM TO BED. PT HAS BEEN RESTING QUIETLY SINCE. PT HAS CALL LIGHT WITHIN REACH AND HAS SHOWN THAT HE UNDERSTANDS HOW TO USE IT.
[2023-04-20 07:26] VITALS: BP 131/60
--- NOTE | 2023-04-20 09:00 | NUR ---
pt laying in bed awake watching tv, a/ox2 to 3, pleasant and cooperative with care, follows commands well, has a good sense of humor, lungs are clear in upper couch, dim in bases, reports productive cough of yellow sputum, no cough noted at this time, he is on r/a, sats are in the mid to high 90s, hrr murmur noted, no edema noted, ppp+2, cap refill <3sec, vs stable, afebrile iv sites are clear and patent, btx4, abd flat soft nontender, voids via urinal skin frail, no open wounds, maew, weak, gloria, call light in reach.
[2023-04-20 16:33] VITALS: BP 117/60
--- NOTE | 2023-04-20 18:09 | NUR ---
pt laying in bed with eyes closed this early evening, no acute changes this shift, has been cooperative with care, call light in reach.
[2023-04-20 21:26] VITALS: BP 119/61
--- NOTE | 2023-04-21 03:57 | NUR ---
SHIFT SUMMARY PT HAD ONE INSTANCE OF IMPULSIVITY THIS SHIFT, BUT WAS STOPPED BY BED ALARM. PT HAD TO HAVE A BOWEL MOVEMENT. PT COMPLAINED THAT HE NEEDED A CPAP, HE WAS HAVING TROUBLE SLEEPING. PT STS THAT HE HAS SLEEP APNEA. RT WAS CALLED AND A CPAP WAS PROVIDED FOR THE PT, AND HE HAS BEEN SLEEPING SINCE THAT TIME. PT HAS CALL LIGHT WITHIN HIS REACH.
[2023-04-21 05:44] VITALS: BP 125/62
[2023-04-21 07:23] VITALS: BP 126/65
--- NOTE | 2023-04-21 08:09 | NUR ---
pt was agitated this am, wanting to go home, he is now sitting in a chair eating some peanutbutter and crackers and is in better mood, pleasant and cooperative with care, follows commands well, reports pain in his neck is bothering him, tylenol given, lungs are clear t/o, on r/a no cough noted, hrr, murmur noted, no edema noted, ppp+2, cap refill <3 sec, vs stable, afebrile, iv sites are clear and patent, btx4, abd flat soft nontender, voids without diff, skin c/w/d, maew, general weakness, gloria, call light in reach.
[2023-04-21] MEDS ORDERED: ASPI81CH PO (10:39)
[2023-04-21] MEDS ORDERED: METO25 PO (10:39)
[2023-04-21] MEDS ORDERED: Lisinopril2.5 MG PO (10:39)
[2023-04-21] MEDS ORDERED: ATOR80 PO (10:39)
--- NOTE | 2023-04-21 11:17 | NUR ---
Pt is being discharged to home, will call when ready to pick him up. he is dressed sitting up in a chair, iv x2 removed intact, went over instructions with him, will also inform when she gets here. [facility], will have all belongings.
--- NOTE | 2023-04-21 11:38 | NUR ---
pt left via wheelchair with nurse in attendence with all his belongings.
== END 2023-04-21 11:37 | disposition home health service (06) | DRG 281 ==
LOC: ER 11:47 → MEDS 15:23 → PCU 15:23 → MEDS 04-19 13:57
PROVIDERS: Emergency Medicine; Family Medicine; ADMIT Internal Medicine
DX: I21.4 Non-ST elevation (NSTEMI) myocardial infarction (principal); F03.B18 Unspecified dementia, moderate, with other behavioral disturbance; M62.82 Rhabdomyolysis; N17.9 Acute kidney failure, unspecified; R29.6 Repeated falls; I35.0 Nonrheumatic aortic (valve) stenosis; Z66 Do not resuscitate; G62.9 Polyneuropathy, unspecified; I10 Essential (primary) hypertension; B18.2 Chronic viral hepatitis C; F41.9 Anxiety disorder, unspecified; F32.A Depression, unspecified; G47.00 Insomnia, unspecified; M54.2 Cervicalgia; W19.XXXA Unspecified fall, initial encounter; Z87.891 Personal history of nicotine dependence; Z86.79 Personal history of other diseases of the circulatory system; Z79.01 Long term (current) use of anticoagulants; Z79.899 Other long term (current) drug therapy; Z98.890 Other specified postprocedural states
CPT/HCPCS: 36415; 70450; 71046; 80048; 80053; 80061; 81001; 82550; 83735; 84484; 85025; 85027; 85520; 85610; 85730; 93005; 93010; 94660; 94762; 97110; 97116; 97162; 97166; 97530; 97535; 99285-25; A9270; C8929; J1644; J1650; J7030

== ENCOUNTER 2023-05-17 16:22 | Emergency (ER) | payer MEDICARE ==
[~2023-05-17] VITALS: Ht 175.3 cm; Wt 68.0 kg
[~2023-05-17 16:22] MED LIST changes: +ASPI81CH PO; +ATOR80 PO; +Lisinopril2.5 MG PO; +METO25 PO
[2023-05-17 17:30] LABS: BASOPHILS ABSOLUTE AUTO 0.02 K/mm3 (0.00-0.23); BASOPHILS PERCENT AUTO 0 % (0-2); EOSINOPHILS ABSOLUTE AUTO 0.09 K/mm3 (0.00-0.68); EOSINOPHILS PERCENT AUTO 2 % (0-6); Hematocrit 32.2 % (37.0-53.0); Hemoglobin 10.5 g/dL (13.5-17.5); IMMATURE GRAN ABSOLUTE AUTO 0.02 K/mm3 (0.00-0.10); IMMATURE GRAN PERCENT AUTO 0 % (0-1); LYMPHOCYTES ABSOLUTE AUTO 1.46 K/mm3 (0.84-5.20); LYMPHOCYTES PERCENT AUTO 25 % (21-46); MONOCYTES ABSOLUTE AUTO 0.65 K/mm3 (0.16-1.47); MONOCYTES PERCENT AUTO 11 % (4-13); Mean Corpuscular HGB 31.1 pg (26.0-34.0); Mean Corpuscular HGB Conc 32.6 g/dL (31.5-36.5); Mean Corpuscular Volume 95 fL (80-100); Mean Platelet Volume 11.5 fL (9.1-12.4); NEUTROPHILS ABSOLUTE AUTO 3.68 K/mm3 (1.96-9.15); NEUTROPHILS PERCENT AUTO 62 % (41-73); Platelet Count 187 K/mm3 (150-400); RDW Coefficient Variation 12.8 % (11.7-14.2); RDW Standard Deviation 44.4 fL (35.1-46.3); Red Blood Cell Count 3.38 M/mm3 (4.30-5.90); White Blood Cell Count 5.92 K/mm3 (4.00-11.30)
[2023-05-17 17:47] LABS: Alanine Aminotransfer (ALT/SGP 22 U/L (12-78); Albumin, Blood 3.6 g/dL (3.4-5.0); Albumin/Globulin Ratio 0.8 (0.8-1.8); Alk Phos 93 U/L (50-136); Anion Gap 3 mmol/L (6-16); Aspartate Aminotrans (AST/SGOT 26 U/L (12-37); Bilirubin, Total 0.3 mg/dL (0.1-1.0); Blood Urea Nitrogen 31 mg/dL (8-24); Bun/Creatinine Ratio 23.1 (12.0-20.0); CO2, Blood 32 mmol/L (21-32); Chloride, Blood 105 mmol/L (98-108); Creatinine, Blood 1.34 mg/dL (0.60-1.20); Ethanol (Alcohol), Blood, Med <3 mg/dL; Globulin, Blood 4.6 g/dL (2.2-4.0); Glomerular Filtration Rate 53 (60-); Glucose, Blood 94 mg/dL (70-99); Potassium, Blood 4.4 mmol/L (3.5-5.5); Sodium, Blood 140 mmol/L (136-145); Total Protein, Blood 8.2 g/dL (6.4-8.2)
[2023-05-17 20:31] VITALS: BP 140/70
[2023-05-17 21:56] LABS: Source, Urine Clean Catch
[2023-05-17 21:58] LABS: Bilirubin, Urine Neg (Neg); Blood, Urine 1+ (Neg); Glucose Qualitative, Urine Neg (Neg); Ketones, Urine Neg (Neg); Leukocyte Esterase, Urine Neg (Neg); Nitrite, Urine Neg (Neg); Protein, Urine Neg (Neg); Urobilinogen, Urine NORM (Normal)
[2023-05-17 22:25] LABS: Appearance, Urine Clear (Clear); Color, Urine Yellow (P-Yellow)
[2023-05-17 22:26] LABS: Bacteria Not Seen /hpf; Squamous Epithelial Cells Not Seen /hpf (Few); White Blood Cells, Urine 0-2 /hpf (0-5)
[2023-05-17 22:29] LABS: U Amphetamine Screen Not Detected; U Barbituate Screen Not Detected; U Benzodiazapine Screen Not Detected; U Cocaine Screen Not Detected; U Methamphetamine Screen Not Detected
[2023-05-17 22:30] LABS: U Buprenorphine Screen Not Detected; U Cannabinoids Screen Not Detected; U Methadone Screen Not Detected; U Opiates Screen Not Detected; U Oxycodone Screen Not Detected; U Phencyclidine Screen Not Detected
[2023-05-17] MEDS ORDERED: SEROQUEL25 MG PO (23:00)
== END 2023-05-17 23:14 | disposition home or self-care (01) ==
LOC: ER 16:22
PROVIDERS: Physician Assistant
DX: F22 Delusional disorders (principal); F03.90 Unspecified dementia, unspecified severity, without behavioral disturbance, psychotic disturbance, mood disturbance, and anxiety; R79.89 Other specified abnormal findings of blood chemistry; M19.90 Unspecified osteoarthritis, unspecified site; Z87.891 Personal history of nicotine dependence; Z79.82 Long term (current) use of aspirin; Z79.899 Other long term (current) drug therapy
CPT/HCPCS: 80053; 81001; 85025; 93005; 93010; 99283-25

== ENCOUNTER 2023-07-21 15:07 | Inpatient (IN) | payer MEDICARE ==
[~2023-07-21] VITALS: Ht 175.3 cm; Wt 70.0 kg
[2023-07-21 15:43] LABS: BASOPHILS ABSOLUTE AUTO 0.03 K/mm3 (0.00-0.23); BASOPHILS PERCENT AUTO 0 % (0-2); EOSINOPHILS PERCENT AUTO 2 % (0-6); Hematocrit 31.9 % (37.0-53.0); Hemoglobin 10.4 g/dL (13.5-17.5); IMMATURE GRAN ABSOLUTE AUTO 0.01 K/mm3 (0.00-0.10); IMMATURE GRAN PERCENT AUTO 0 % (0-1); LYMPHOCYTES PERCENT AUTO 24 % (21-46); MONOCYTES ABSOLUTE AUTO 0.77 K/mm3 (0.16-1.47); MONOCYTES PERCENT AUTO 11 % (4-13); Mean Corpuscular HGB Conc 32.6 g/dL (31.5-36.5); Mean Corpuscular Volume 95 fL (80-100); Mean Platelet Volume 11.7 fL (9.1-12.4); NEUTROPHILS ABSOLUTE AUTO 4.31 K/mm3 (1.96-9.15); NEUTROPHILS PERCENT AUTO 63 % (41-73); NRBC ABSOLUTE 0.02 K/mm3 (0.00-0.02); NRBC Auto 0.3 /100 WBC (0.0-0.2); Platelet Count 149 K/mm3 (150-400); RDW Coefficient Variation 13.2 % (11.7-14.2); RDW Standard Deviation 46.4 fL (35.1-46.3); Red Blood Cell Count 3.35 M/mm3 (4.30-5.90); White Blood Cell Count 6.82 K/mm3 (4.00-11.30)
[2023-07-21 15:50] LABS: Calcium, Ionized (POC) 1.14 mmol/L (1.10-1.46); Chloride (POC) 103 mmol/L (98-108); Creatinine (POC) 1.7 mg/dL (0.8-1.3); Glucose (ISTAT POC) 92 mg/dL (70-99); Hemoglobin (POC) 10.9 g/dL (13.5-17.5); Potassium (POC) 4.8 mmol/L (3.5-5.5); Sodium (POC) 139 mmol/L (135-148); Total CO2 (POC) 27 mmol/L (21-32)
[2023-07-21 16:06] LABS: Albumin, Blood 3.9 g/dL (3.4-5.0); Albumin/Globulin Ratio 0.9 (0.8-1.8); Bilirubin, Total 0.3 mg/dL (0.1-1.0); Bun/Creatinine Ratio 29.9 (12.0-20.0); Calcium, Blood 8.9 mg/dL (8.5-10.1); Creatinine, Blood 1.54 mg/dL (0.60-1.20); Globulin, Blood 4.3 g/dL (2.2-4.0); Potassium, Blood 5.2 mmol/L (3.5-5.5); Total Protein, Blood 8.2 g/dL (6.4-8.2)
[2023-07-21] MEDS ORDERED: Calcium Gluconate 10% 100 MG/ML INJ IV ONE (17:00)
[2023-07-21] MEDS ORDERED: Insulin Regular 100 Unit/ML 1ML Dose IV ONE (17:00)
[2023-07-21] MEDS ORDERED: Dextrose 50% 50 ML Vial IV ONE (17:00)
[2023-07-21] MEDS ORDERED: Sodium Bicarb 8.4% 1 MEQ/ML 50 ML Vial IV ONE (17:00)
[2023-07-21] MEDS ORDERED: Dextrose 50% 50 ML Syringe IV ONE (17:05)
[2023-07-21 17:14] LABS: Influenza A, PCR NEGATIVE (NEGATIVE); Influenza B, PCR NEGATIVE (NEGATIVE); Resp Syncytial Virus, PCR NEGATIVE (NEGATIVE); SARS-Cov-2 (COVID-19) PCR, MMC NEGATIVE (NEGATIVE)
[2023-07-21] MEDS ORDERED: Acetaminophen 325 MG TABLET PO PRN (17:40)
[2023-07-21] MEDS ORDERED: FLU VACC QS2023-24(6MOS UP)/PF 60 MCG/0.5 ML SYRINGE IM SCH (17:40)
[2023-07-21] MEDS ORDERED: Atropine Sulfate 0.1 MG/ML 10ML SYR IV PRN (17:40)
[2023-07-21] MEDS ORDERED: Ondansetron HCl 2 MG / ML 2ML Vial IV PRN (17:40)
[2023-07-21] MEDS ORDERED: Atropine Sulfate 0.1 MG/ML 10ML SYR IV SCH (18:10)
[2023-07-21] MEDS ORDERED: EPINEPhrine HCl 0.1 MG/ML 10ML SYR IV SCH (18:10)
[2023-07-21] MEDS ORDERED: NS 1,000 ML IV SCH (19:40)
[2023-07-21 21:00] VITALS: BP 114/47
[2023-07-21] MEDS ORDERED: Atorvastatin 40 MG Tab PO SCH (21:00)
[2023-07-21 22:00] VITALS: BP 101/36
[2023-07-21] MEDS ORDERED: QUEtiapine Fumarate 50 MG TAB PO SCH (22:20)
[2023-07-21] MEDS ORDERED: Gabapentin 100 MG Cap PO SCH (22:20)
[2023-07-21] MEDS ORDERED: TraZODone HCl 100 MG Tab PO SCH (22:20)
[2023-07-21 23:00] VITALS: BP 107/41
--- NOTE | 2023-07-21 23:06 | NUR ---
ASSUME CARE PT ARRIVED TO UNIT AT 2044, PT ORIENTED TO SELF AND PLACE, PT KNEW MONTH BUT NOT YEAR. PT AWAKE AND PLEASANT, PT AWARE THAT "KNOWS ALL THE ANSWERS TO THOSE QUESTIONS" BUT DOES ATTEMPT TO ANSWER QUESTIONS TO BEST OF ABILITY WHEN ASKED. PT ARRIVES WITH 2 PIV BILAT FA PRESENT, WITH 150ML/HR NS INFUSING. THIS RN SPOKE WITH PT LUCA VIA TELEPHONE AT 2155 TO CONFIRM MEDICATIONS LIST. RN SPOKE WITH MD GROSS TO CONFIRM MEDICATION ORDER FOR BEDTIME MEDICATIONS AT 2151 AND 2212 AFTER CONFIRMING MED LIST WITH PT LUCA. SEE NEW ORDERS FOR PT BEDTIME MEDICATIONS. PT LUCA MENTIONS PT WEARS CPAP AT HOME, ORDERS FOR CPAP PLACED. PT WILL BRING IN HOME CPAP TOMORROW. PT CURRENTLY RESTING COMFORTABLY IN BED WITH BED ALARM ON 150ML/HR NS REMAINS INFUSING AND WEARING CPAP.
[2023-07-21] MEDS ORDERED: Midodrine 5 MG Tab PO ONE (23:55)
[2023-07-21] MEDS ORDERED: NS 500 ML IV ONE (23:55)
[2023-07-22] VITALS (35 sets, daily range): BP systolic 97–165; BP diastolic 41–136
--- NOTE | 2023-07-22 05:25 | NUR ---
SHIFT SUMMARY PT RESTED COMFORTABLY OVERNIGHT ON CPAP. PT HAD ONE INCONTINENT EPISODE INTO ATTENDS AND WAS ABLE TO USE URINAL THE SECOND TIME. PT RHYTHM NOW SINUS BRADYCARDIA, STILL REMAINS IRREGULAR AT TIMES, BUT NO LONGER APPEARS A 3RD DEGREE AV. PT REMAINS ON NS AT 150ML/HR THROUGH PIV, BOTH PIV REMAIN INTACT.
--- NOTE | 2023-07-22 07:00 | NUR ---
ASSUME CARE: I have assumed care of this patient.
[2023-07-22 08:38] LABS: Magnesium, Blood 2.7 mg/dL (1.6-2.4)
[2023-07-22 08:39] LABS: Bun/Creatinine Ratio 28.8 (12.0-20.0); Calcium, Blood 8.9 mg/dL (8.5-10.1); Creatinine, Blood 1.32 mg/dL (0.60-1.20); Potassium, Blood 4.2 mmol/L (3.5-5.5)
[2023-07-22] MEDS ORDERED: Aspirin 81 MG Chew PO SCH (09:00)
--- NOTE | 2023-07-22 16:59 | NUR ---
PALLATIVE CARE- MET WITH TARYN AND HIS SELIN. WE DISCUSSED THE POSSIBILITY OF TARYN NEEDING A PACMAKER PER CARDIOLOGYS NOTES. TARYN AND SELIN WERE COMFORTABLE WITH TARYN RECIEVING THAT PROCEDURE. WE DISCUSSED CARE AT HOME SELIN RELAYED THAT TARYN HAS HAD FREQUENT FALLS OVER THE LAST SEVERAL YEARS. SHE REPORTED THAT HE IS VERY CAREFUL WHEN HE WALKS WITH A WALKER TO AVOID FUTURE FALLS. SHE SAID THAT SHE CANNOT LIFT HIM HERSELS SO SHE HAS TO CALL FOR ASSISTANCE. SELIN REPORTED THAT THEY WERE INTERVIEWING [facility] AND THEY WILL COME ONCE WEEKLY TO ASSIST WITH TARYNS CARE AT HOME. SHE EXPRESSED CONCERNES ABOUT HIS MOBILITY AND REPORTED THAT LAST TIME HE WAS IN THE HOSPITAL THAT HE WENT TO SNF THEN HAD HH AND THAT [facility] WOULD BE PREFERABLE FOR HER AGAIN TO MAKE SURE HE IS STRONG ENOUGH WHEN HE COMES HOME. I DISCUSSED CODE STAUS WITH THEM AND LAINEY REPORTED THAT THEY HAD FILLED OUT A POLST THAT REFLECTED DNR/DNI STATUS. SHE EXPRESSED THAT SHE DID WANT TO MAINTAIN THE CURRENT TREATMENT AND PLAN FOR PCMKR, BUT THAT THEY WOULD NOT WANT CHEST COMPRESSIONS. TARYN AGREED WITH THIS. I CALLED DR. RUVALCABA AND RELAYED THAT CONVERSATION WITH HER. REQUESTED A COPY OF THE POLST FROM HIS PRIMARY CARE OFFICE. PALLATIVE CARE WILL REMAIN AVALIABLE.
--- NOTE | 2023-07-22 19:26 | NUR ---
SHIFT SUMMARY: Leobardo visualized on monitor around 1145 after pt received lunch. He is scheduled to receive pacemaker tomorrow morning. IVF continues at 150 mls/hr. On room air. Voiding with urinal. One large BM today. at bedside today with palliative care. Code status changed to DNR.
[2023-07-23] VITALS (28 sets, daily range): BP systolic 104–160; BP diastolic 39–111
--- NOTE | 2023-07-23 00:10 | NUR ---
ASSUME CARE PT RESTING COMFORTABLY IN BED, REQUESTING DINNER TRAY. PT HAS NPO ORDERS STARTING ON 07/23 IN THE AM. PT GIVEN DINNER TRAY, PT ABLE TO FEED SELF. PT HAD INCONTINENT EPISODE INTO BRIEF, BUT RN CONCERNED FOR ONGOING DIFFICULTY WITH URINATING AND COMPLETED BLADDER SCAN TO ENSURE NO SIGNIFICANT AMOUNT OF URINE WAS BEING RETAINED. 55ML IN BLADDER, SEE BLADDER MANAGEMENT FLOWSHEET. PT DID HAVE BM AT THIS TIME WELL. PT UPDATED AT 1954 AND AGAIN AT 2034 WHEN PT CALLED BACK TO INFORM RN THAT PT LAST RECEIVED METOPROLOL ON 05/01/23. PT SCDS REMAIN ON, PT REMAINS IN SINUS LUCA/SINUS BLOCK. PT PT REMAINS STABLE AT THIS TIME.PT REMAINS ORIENTED TO PERSON, SELF, AND PLACE, PT DOES SEEM MORE CONFUSED ABOUT SURROUNDINGS THIS EVENING. PT REORIENTED TO ROOM AND CURRENT DATE. PT MADE STATEMENT TO SILK SPREADER ABOUT A DOG BEING IN THE CORNER OF THE ROOM WHILE CHANGING ATTENDS. PT LIMITED CODE STATUS SIGN POSTED OUTSIDE DOOR AND CONFIRMED WITH VIA TELEPHONE.
[2023-07-23 03:42] LABS: BASOPHILS ABSOLUTE AUTO 0.03 K/mm3 (0.00-0.23); BASOPHILS PERCENT AUTO 0 % (0-2); EOSINOPHILS ABSOLUTE AUTO 0.11 K/mm3 (0.00-0.68); EOSINOPHILS PERCENT AUTO 1 % (0-6); Hematocrit 32.8 % (37.0-53.0); Hemoglobin 10.6 g/dL (13.5-17.5); IMMATURE GRAN ABSOLUTE AUTO 0.01 K/mm3 (0.00-0.10); IMMATURE GRAN PERCENT AUTO 0 % (0-1); LYMPHOCYTES ABSOLUTE AUTO 1.74 K/mm3 (0.84-5.20); LYMPHOCYTES PERCENT AUTO 22 % (21-46); MONOCYTES ABSOLUTE AUTO 0.77 K/mm3 (0.16-1.47); MONOCYTES PERCENT AUTO 10 % (4-13); Mean Corpuscular HGB 30.7 pg (26.0-34.0); Mean Corpuscular HGB Conc 32.3 g/dL (31.5-36.5); Mean Corpuscular Volume 95 fL (80-100); Mean Platelet Volume 12.3 fL (9.1-12.4); NEUTROPHILS ABSOLUTE AUTO 5.17 K/mm3 (1.96-9.15); NEUTROPHILS PERCENT AUTO 66 % (41-73); Platelet Count 144 K/mm3 (150-400); RDW Coefficient Variation 13.3 % (11.7-14.2); RDW Standard Deviation 45.6 fL (35.1-46.3); Red Blood Cell Count 3.45 M/mm3 (4.30-5.90); White Blood Cell Count 7.83 K/mm3 (4.00-11.30)
[2023-07-23 04:08] LABS: Albumin, Blood 3.3 g/dL (3.4-5.0); Albumin/Globulin Ratio 0.8 (0.8-1.8); Bilirubin, Total 0.3 mg/dL (0.1-1.0); Bun/Creatinine Ratio 24.3 (12.0-20.0); Calcium, Blood 8.5 mg/dL (8.5-10.1); Creatinine, Blood 1.44 mg/dL (0.60-1.20); Globulin, Blood 3.9 g/dL (2.2-4.0); Potassium, Blood 4.2 mmol/L (3.5-5.5); Total Protein, Blood 7.2 g/dL (6.4-8.2)
--- NOTE | 2023-07-23 05:24 | NUR ---
SHIFT SUMMARY PT HAD INCREASED CONFUSION/IRRITABILITY OVERNIGHT. PT REMOVED GOWN AND SOME MONITORING EQUIPMENT AROUND 0230. PT ATTENDS CHANGED AND EQUIPMENT REAPPLIED, INCLUDING CPAP. PT RESTING COMFORTABLY IN BETWEEN EPISODES OF CONFUSION/RESTLESSNESS. PT [address] REMAIN IN PLACE, NO GTTS, SCDS REMAIN IN PLACE. PT REFUSED CPAP UNTIL 0230 AFTER CLEAN UP. PT HR HAS REMAINED IN THE HIGH 30'S TO LOW 40'S FOR MOST OF THE NIGHT, PT RHYTHM CONTINUES TO BE MOSTLY SINUS BRADYCARDIA, BUT DOES APPEAR TO GO INTO A BLOCK/NON SINUS RHYTHM AT TIMES. PT HAS NO C/O CHEST PAIN OR ANY SYMPTOMATIC CHANGES.
[2023-07-23] MEDS ORDERED: CeFAZolin Sodium 1000 mg Vial ONE (07:02)
[2023-07-23] MEDS ORDERED: Heparin Sodium 1000 Units/ML 10ML MDV ONE (07:02)
[2023-07-23] MEDS ORDERED: NS 1,000 ML IV ONE (07:02)
[2023-07-23] MEDS ORDERED: FentaNYL Citrate 50 MCG/ML 2 ML Injection ONE (07:29)
[2023-07-23] MEDS ORDERED: Midazolam HCl 1MG / ML 2ML Vial ONE (07:29)
[2023-07-23] MEDS ORDERED: NS 100 ML IV ONE (07:29)
[2023-07-23] MEDS ORDERED: CeFAZolin Sodium 2,000 MG VIAL ONE (07:29)
[2023-07-23] MEDS ORDERED: NS 500 ML IV ONE (07:30)
--- NOTE | 2023-07-23 11:00 | NUR ---
ASSUMED CARE REPORT FROM JENNIFER SHER AT 0700. PT IN BUTT TRIMMER AT SHIFT CHANGE. RETURNS TO ROOM AT APPROX 0930 POST PACEMAKER PLACEMENT. HX OF DEMENTIA. ORIENTED TO SELF, SITUATION, AND PLACE. UNSURE OF DATE. FOLLOWS COMMANDS. DENIES PAIN OR NEEDS. DRESSING TO LEFT CHEST WALL, C/D/I. SLING AND ICE PACK PLACED ON ARRIVAL TO ROOM. DUAL CHAMBER PACER, RATE 60'S. BP STABLE. PIV X 2. FAMILY AT BEDSIDE AND UPDATED. WILL CONTINUE PLAN OF CARE.
[2023-07-23] MEDS ORDERED: CeFAZolin Sodium 2,000 MG in NS 50 ML IV SCH (16:00)
--- NOTE | 2023-07-23 17:29 | NUR ---
SHIFT SUMMARY NO ACUTE CHANGES THIS SHIFT. PT A&O TO PERSON, PLACE, AND SITUATION, DOES NOT KNOW DATE. FOLLOWS COMMANDS. OCCASIONALLY IMPULSIVE. USES CALL LIGHT. BBB, RATE 80'S. BP STABLE. DRESSING TO LEFT CHEST WALL C/D/I. SLING IN PLACE. MEDICATED FOR PAIN c TYLENOL. INCONTINENT OF URINE. PT UP TO CHAIR, VERY UNSTEADY ON FEET, TWO PERSON ASSIST. WILL CONTINUE PLAN OF CARE UNTIL REPORT TO ONCOMING NURSE.
[2023-07-23] MEDS ORDERED: Metoprolol Succinate 25 MG TABCR PO SCH (21:00)
[2023-07-23] MEDS ORDERED: AmLODIPine Besylate 5 MG Tab PO SCH (21:00)
--- NOTE | 2023-07-23 23:04 | NUR ---
ASSUMPTION OF CARE/ASSESSMENT: ASSUMED CARE OF PT AT 1900. PT IN BED AND A&O X 3; PT HAS HX OF DEMENTION AND IS CONFUSED ABOUT THE DATE AND OCCASIONALLY HAS VISUAL HALLUCINATIONS. PT ON RA WITH CLEAR LUNG SOUNDS THROUGHOUT, DIM BASES; SPO2 98<. PT STATUS POST PACEMAKER PLACEMENT IN LCW; TENDERNESS IN AREA BUT WITHOUT REDDNESS/INFLAMMATION. PT PACED ON MONITOR WITH HR 70'S, SBP 120'S AND PT DENIES CHEST PAIN/PRESSURE. PT TOLERATING PO INTAKE; ABD SOFT, NON-TENDER. PT INCONTINENT WITH ATTENDS IN PLACE; OCCASIONALLY USING URINAL. PT CONWAY, HELPS WITH TURNS BUT NEEDS MODERATE ASSISTANCE. PT HOME CPAP IN PLACE FOR THE NIGHT ON HOME SETTINGS. BED LOWERED, CALL LIGHT IN REACH.
[2023-07-24] VITALS (14 sets, daily range): BP systolic 125–148; BP diastolic 60–117
[2023-07-24 05:17] LABS: BASOPHILS ABSOLUTE AUTO 0.02 K/mm3 (0.00-0.23); BASOPHILS PERCENT AUTO 0 % (0-2); EOSINOPHILS ABSOLUTE AUTO 0.08 K/mm3 (0.00-0.68); EOSINOPHILS PERCENT AUTO 1 % (0-6); Hematocrit 31.7 % (37.0-53.0); Hemoglobin 10.5 g/dL (13.5-17.5); IMMATURE GRAN ABSOLUTE AUTO 0.03 K/mm3 (0.00-0.10); IMMATURE GRAN PERCENT AUTO 0 % (0-1); LYMPHOCYTES ABSOLUTE AUTO 1.15 K/mm3 (0.84-5.20); LYMPHOCYTES PERCENT AUTO 12 % (21-46); MONOCYTES ABSOLUTE AUTO 1.08 K/mm3 (0.16-1.47); MONOCYTES PERCENT AUTO 11 % (4-13); Mean Corpuscular HGB 30.9 pg (26.0-34.0); Mean Corpuscular HGB Conc 33.1 g/dL (31.5-36.5); Mean Corpuscular Volume 93 fL (80-100); Mean Platelet Volume 11.5 fL (9.1-12.4); NEUTROPHILS ABSOLUTE AUTO 7.13 K/mm3 (1.96-9.15); NEUTROPHILS PERCENT AUTO 75 % (41-73); Platelet Count 124 K/mm3 (150-400); RDW Coefficient Variation 13.3 % (11.7-14.2); RDW Standard Deviation 45.4 fL (35.1-46.3); White Blood Cell Count 9.49 K/mm3 (4.00-11.30)
[2023-07-24 05:46] LABS: Albumin, Blood 3.2 g/dL (3.4-5.0); Albumin/Globulin Ratio 0.8 (0.8-1.8); Bilirubin, Total 0.5 mg/dL (0.1-1.0); Calcium, Blood 8.8 mg/dL (8.5-10.1); Creatinine, Blood 1.16 mg/dL (0.60-1.20); Globulin, Blood 3.8 g/dL (2.2-4.0); Potassium, Blood 4.1 mmol/L (3.5-5.5)
--- NOTE | 2023-07-24 05:53 | NUR ---
SHIFT SUMMARY: NO ACUTE CHANGES OVERNIGHT; PT REMAINS ALERT AND ORIENTED TO PERSON, PLACE AND SITUATION BUT CANNOT STATE DATE CORRECTLY. PT FOLLOWING COMMANDS BUT IMPULSIVE AT TIMES. PT SLEPT ON AND OFF THROUGHOUT THE NIGHT ON HIS HOME CPAP. PT INCONTINENT OF URINE AND HAD ONE BM THIS SHIFT. VSS THROUGHOUT THE NIGHT. BED LOWERED, CALL LIGHT IN REACH.
[2023-07-24] MEDS ORDERED: Amlodipine Bes2.5 MG PO (13:22)
[2023-07-24] MEDS ORDERED: CEPH500 PO (13:24)
[2023-07-24] MEDS ORDERED: METO25ER PO (13:25)
--- NOTE | 2023-07-24 16:50 | NUR ---
PATIENT HAS BEEN TAKEN OUT OF UNIT TO SNF BY [facility] [facility]. HOME CPAP AND OTHER BELONGINGS SENT WITH PATIENT. MEDICAL FOLDER FOR FACILITY ALSO SENT WITH TRANSPORT PERSONEL.
[2023-07-24] MEDS ORDERED: LevETIRAcetam 500 MG Tab PO SCH (21:00)
[2023-07-24] MEDS ORDERED: Cephalexin Monohydrate 500 MG Cap PO SCH ×2 (21:00)
== END 2023-07-24 16:30 | DRG 243 ==
LOC: ER 15:07 → ICUE 15:08 → PCU 15:08 → ICUE 20:40
PROVIDERS: Family Medicine; Internal Medicine Cardiovascular Disease; Student in an Organized Health Care Education/Training Program; ADMIT Internal Medicine
PROC: 0JH606Z Insertion of Pacemaker, Dual Chamber into Chest Subcutaneous Tissue and Fascia, Open Approach (ICD-10-PCS; principal; 2023-07-23)
PROC: 02H63JZ Insertion of Pacemaker Lead into Right Atrium, Percutaneous Approach (ICD-10-PCS; 2023-07-23)
PROC: 02HK3JZ Insertion of Pacemaker Lead into Right Ventricle, Percutaneous Approach (ICD-10-PCS; 2023-07-23)
PROC: 5A09357 Assistance with Respiratory Ventilation, Less than 24 Consecutive Hours, Continuous Positive Airway Pressure (ICD-10-PCS; 2023-07-23)
DX: I44.2 Atrioventricular block, complete (principal); N17.9 Acute kidney failure, unspecified; N18.30 Chronic kidney disease, stage 3 unspecified; I25.10 Atherosclerotic heart disease of native coronary artery without angina pectoris; F03.90 Unspecified dementia, unspecified severity, without behavioral disturbance, psychotic disturbance, mood disturbance, and anxiety; I35.0 Nonrheumatic aortic (valve) stenosis; G62.9 Polyneuropathy, unspecified; I12.9 Hypertensive chronic kidney disease with stage 1 through stage 4 chronic kidney disease, or unspecified chronic kidney disease; E78.5 Hyperlipidemia, unspecified; M19.90 Unspecified osteoarthritis, unspecified site; I25.5 Ischemic cardiomyopathy; E83.41 Hypermagnesemia; M54.2 Cervicalgia; M54.9 Dorsalgia, unspecified; G89.29 Other chronic pain; Z79.82 Long term (current) use of aspirin; Z79.811 Long term (current) use of aromatase inhibitors; Z51.5 Encounter for palliative care; I25.2 Old myocardial infarction; Z79.899 Other long term (current) drug therapy; Z87.891 Personal history of nicotine dependence; Z11.52 Encounter for screening for COVID-19
CPT/HCPCS: 0241U; 33208; 36415; 71045; 76937; 80047; 80048; 80053; 83735; 83880; 84443; 84484; 85014; 85025; 85379; 93005; 93010; 94660; 96361; 96374; 96375; 97162; 97166; 97530; 99152; 99153; 99285-25; A9270; C1785; C1894; C1898; G0378; J0461; J0612; J0690; J1644; J1815; J2250; J3010; J7030; J7040; J7799

== ENCOUNTER → 2023-11-19 | Outpatient (CLI) | payer MEDICARE ==
[~2023-11-19] MED LIST changes: +Amlodipine Bes2.5 MG PO; +CEPH500 PO; +METO25ER PO
[2023-11-19 16:19] LABS: BASOPHILS ABSOLUTE AUTO 0.02 K/mm3 (0.00-0.23); BASOPHILS PERCENT AUTO 0 % (0-2); EOSINOPHILS ABSOLUTE AUTO 0.28 K/mm3 (0.00-0.68); EOSINOPHILS PERCENT AUTO 5 % (0-6); Hematocrit 34.3 % (37.0-53.0); Hemoglobin 11.2 g/dL (13.5-17.5); IMMATURE GRAN ABSOLUTE AUTO 0.01 K/mm3 (0.00-0.10); IMMATURE GRAN PERCENT AUTO 0 % (0-1); LYMPHOCYTES PERCENT AUTO 15 % (21-46); MONOCYTES ABSOLUTE AUTO 0.73 K/mm3 (0.16-1.47); MONOCYTES PERCENT AUTO 12 % (4-13); Mean Corpuscular HGB 29.5 pg (26.0-34.0); Mean Corpuscular HGB Conc 32.7 g/dL (31.5-36.5); Mean Corpuscular Volume 90 fL (80-100); Mean Platelet Volume 11.8 fL (9.1-12.4); NEUTROPHILS ABSOLUTE AUTO 4.17 K/mm3 (1.96-9.15); NEUTROPHILS PERCENT AUTO 68 % (41-73); Platelet Count 144 K/mm3 (150-400); RDW Coefficient Variation 13.3 % (11.7-14.2); RDW Standard Deviation 43.9 fL (35.1-46.3); White Blood Cell Count 6.11 K/mm3 (4.00-11.30)
[2023-11-19 16:59] LABS: Alanine Aminotransfer (ALT/SGP 19 U/L (12-78); Albumin, Blood 3.9 g/dL (3.4-5.0); Albumin/Globulin Ratio 0.9 (0.8-1.8); Alk Phos 101 U/L (50-136); Anion Gap 8 mmol/L (3-11); Aspartate Aminotrans (AST/SGOT 21 U/L (12-37); Bilirubin, Total 0.4 mg/dL (0.1-1.0); Blood Urea Nitrogen 23 mg/dL (8-24); Bun/Creatinine Ratio 19.5 (12.0-20.0); CO2, Blood 28 mmol/L (21-32); Calcium, Blood 8.9 mg/dL (8.5-10.1); Chloride, Blood 107 mmol/L (98-108); Cholesterol 130 mg/dL (50-200); Creatinine, Blood 1.18 mg/dL (0.60-1.20); Globulin, Blood 4.3 g/dL (2.2-4.0); Glomerular Filtration Rate 62 (60-); Glucose, Blood 144 mg/dL (70-99); HDL Cholesterol 44 mg/dL (>39); LDL/HDL RATIO 1.6; Low Density Lipoprotein Chol 71 mg/dL (0-110); Magnesium, Blood 2.7 mg/dL (1.6-2.4); Potassium, Blood 3.8 mmol/L (3.5-5.5); Sodium, Blood 139 mmol/L (136-145); Total Protein, Blood 8.2 g/dL (6.4-8.2); Triglycerides 75 mg/dL (30-160); Very Low Density Lipoprot Chol 15 mg/dL (6-32)
== END | disposition home or self-care (01) ==
LOC: LAB 15:30 → LAB SHORT 15:30
PROVIDERS: Family Medicine
DX: Z51.81 Encounter for therapeutic drug level monitoring (principal); Z79.899 Other long term (current) drug therapy
CPT/HCPCS: 80053; 80061; 82306; 83036; 83735; 84443; 85025

== ENCOUNTER → 2023-12-05 | Outpatient (CLI) | payer MEDICARE ==
[2023-12-05 14:43] LABS: BASOPHILS ABSOLUTE AUTO 0.02 K/mm3 (0.00-0.23); BASOPHILS PERCENT AUTO 0 % (0-2); EOSINOPHILS ABSOLUTE AUTO 0.17 K/mm3 (0.00-0.68); EOSINOPHILS PERCENT AUTO 3 % (0-6); Hematocrit 31.2 % (37.0-53.0); Hemoglobin 10.1 g/dL (13.5-17.5); IMMATURE GRAN ABSOLUTE AUTO 0.01 K/mm3 (0.00-0.10); IMMATURE GRAN PERCENT AUTO 0 % (0-1); LYMPHOCYTES ABSOLUTE AUTO 1.14 K/mm3 (0.84-5.20); LYMPHOCYTES PERCENT AUTO 21 % (21-46); MONOCYTES ABSOLUTE AUTO 0.63 K/mm3 (0.16-1.47); MONOCYTES PERCENT AUTO 12 % (4-13); Mean Corpuscular HGB 28.9 pg (26.0-34.0); Mean Corpuscular HGB Conc 32.4 g/dL (31.5-36.5); Mean Corpuscular Volume 89 fL (80-100); Mean Platelet Volume 10.7 fL (9.1-12.4); NEUTROPHILS ABSOLUTE AUTO 3.41 K/mm3 (1.96-9.15); NEUTROPHILS PERCENT AUTO 63 % (41-73); Platelet Count 143 K/mm3 (150-400); RDW Coefficient Variation 13.9 % (11.7-14.2); RDW Standard Deviation 45.3 fL (35.1-46.3); Red Blood Cell Count 3.49 M/mm3 (4.30-5.90); White Blood Cell Count 5.38 K/mm3 (4.00-11.30)
[2023-12-05 14:49] LABS: Albumin, Blood 3.4 g/dL (3.4-5.0); Albumin/Globulin Ratio 0.8 (0.8-1.8); Bilirubin, Total 0.4 mg/dL (0.1-1.0); Bun/Creatinine Ratio 19.3 (12.0-20.0); Calcium, Blood 8.8 mg/dL (8.5-10.1); Creatinine, Blood 1.35 mg/dL (0.60-1.20); Globulin, Blood 4.4 g/dL (2.2-4.0); Potassium, Blood 3.9 mmol/L (3.5-5.5); Total Protein, Blood 7.8 g/dL (6.4-8.2)
== END | disposition home or self-care (01) ==
LOC: LAB 14:33 → LAB SHORT 14:33
PROVIDERS: Family Medicine
DX: R53.1 Weakness (principal)
CPT/HCPCS: 80053; 85025

== ENCOUNTER → 2023-12-23 | Outpatient (CLI) | payer MEDICARE ==
[2023-12-23 11:29] LABS: BASOPHILS ABSOLUTE AUTO 0.02 K/mm3 (0.00-0.23); BASOPHILS PERCENT AUTO 0 % (0-2); EOSINOPHILS ABSOLUTE AUTO 0.09 K/mm3 (0.00-0.68); EOSINOPHILS PERCENT AUTO 2 % (0-6); Hematocrit 32.7 % (37.0-53.0); Hemoglobin 10.7 g/dL (13.5-17.5); IMMATURE GRAN ABSOLUTE AUTO 0.01 K/mm3 (0.00-0.10); IMMATURE GRAN PERCENT AUTO 0 % (0-1); LYMPHOCYTES ABSOLUTE AUTO 1.27 K/mm3 (0.84-5.20); LYMPHOCYTES PERCENT AUTO 22 % (21-46); MONOCYTES ABSOLUTE AUTO 0.67 K/mm3 (0.16-1.47); MONOCYTES PERCENT AUTO 11 % (4-13); Mean Corpuscular HGB 29.2 pg (26.0-34.0); Mean Corpuscular HGB Conc 32.7 g/dL (31.5-36.5); Mean Corpuscular Volume 89 fL (80-100); Mean Platelet Volume 11.2 fL (9.1-12.4); NEUTROPHILS ABSOLUTE AUTO 3.86 K/mm3 (1.96-9.15); NEUTROPHILS PERCENT AUTO 65 % (41-73); Platelet Count 135 K/mm3 (150-400); RDW Coefficient Variation 14.9 % (11.7-14.2); RDW Standard Deviation 48.7 fL (35.1-46.3); Red Blood Cell Count 3.67 M/mm3 (4.30-5.90); White Blood Cell Count 5.92 K/mm3 (4.00-11.30)
[2023-12-23 11:57] LABS: Albumin, Blood 3.7 g/dL (3.4-5.0); Albumin/Globulin Ratio 0.9 (0.8-1.8); Bilirubin, Total 0.5 mg/dL (0.1-1.0); Bun/Creatinine Ratio 16.2 (12.0-20.0); Calcium, Blood 9.1 mg/dL (8.5-10.1); Creatinine, Blood 1.36 mg/dL (0.60-1.20); Globulin, Blood 4.2 g/dL (2.2-4.0); Potassium, Blood 3.8 mmol/L (3.5-5.5); Total Protein, Blood 7.9 g/dL (6.4-8.2)
== END | disposition home or self-care (01) ==
LOC: LAB 11:21 → LAB SHORT 11:21
PROVIDERS: Family Medicine
DX: M79.89 Other specified soft tissue disorders (principal); R07.9 Chest pain, unspecified
CPT/HCPCS: 80053; 83880; 84484; 85025